=== PATIENT | female | born 1945 | race Caucasian/White ===

== ENCOUNTER 2023-09-14 08:15 | Outpatient (RCR) | payer MEDICARE, BC, SELFPAY | END 2024-01-12 23:59 | disposition home or self-care (01) | PROVIDERS: PCP Family Medicine; Visit Provider Family Medicine | DX: M47.816 Spondylosis without myelopathy or radiculopathy, lumbar region (principal); M51.36 Other intervertebral disc degeneration, lumbar region; Z51.89 Encounter for other specified aftercare | CPT/HCPCS: 97110; 97140; 97162 ==

== ENCOUNTER 2024-09-06 19:52 | Outpatient (CLI) | payer MEDICARE, BC, SELFPAY | END 2024-09-06 19:53 | disposition home or self-care (01) | LOC: AMB 09-10 16:14 | PROVIDERS: PCP Family Medicine; Visit Provider Emergency Medicine Emergency Medical Services | DX: R53.1 Weakness (principal) | CPT/HCPCS: A0425; A0427 ==

== ENCOUNTER 2024-09-06 20:37 | Inpatient (IN) | payer MEDICARE, BC, SELFPAY ==
[2024-09-06] VITALS (9 sets, daily range): BP systolic 100–110; BP diastolic 37–81; PULSE 99–120; RESP 18–28; TEMP 36.6; O2SAT 95–99
--- OUTSIDE RECORDS SUMMARY | 2024-09-06 20:38 | XMS_ITS | Clinical Summary ---
Author Organization [employer] [facility] Address [address] [place] [address] Care Team Providers Care Employment Interviewer Name Role Phone Kely Salas MD Primary Care Provider [phone] Allergies No known active allergies Medications Cholecalciferol, Vitamin D3, (VITAMIN D-3) 2,000 unit tabletIndications:V itamin D deficiency Take 1 tablet by mouth once daily. 0 4 Active apixaban (Eliquis) 5 mg tabletIndications:A trial fibrillation, unspecified type (HC) Take 1 Tablet (5 mg) by mouth two times daily. 180 Tablet 3 4 Active atenoloL (TENORMIN) 100 mg tabletIndications:C hronic a-fib (HC) Take 1 Tablet (100 mg) by mouth once daily. 90 Tablet 3 4 Active furosemide (LASIX) 40 mg tabletIndications:A trial fibrillation, unspecified type (HC) Take 1 Tablet (40 mg) by mouth two times daily. 180 Tablet 3 4 Active potassium chloride (Klor-Con M20) 20 mEq extended-release tablet (part/cryst)Indicat ions:Hypokalemia Take 1 Tablet (20 mEq) by mouth once daily with a meal. 90 Tablet 3 4 Active rosuvastatin (CRESTOR) 20 mg tabletIndications:H yperlipidemia, unspecified hyperlipidemia type Take 1 Tablet (20 mg) by mouth at bedtime. 90 Tablet 3 4 Active omeprazole (PRILOSEC) 20 mg Delayed-Release capsuleIndications: Gastric reflux Take 1 Capsule (20 mg) by mouth once daily before a meal. 90 Capsule 3 4 Active halobetasol 0.05 % creamIndications:Alyx tong sclerosus Apply thin layer 2-3 times per week. 50 g 4 Active Active Problems Problem Noted Date Diagnosed Date Hyperlipidemia 09/24/2022 Positive cardiac stress test 09/24/2022 Hyperparathyroidism 03/05/2022 Overview (03/05/2022): Hypercalcemia: secondary to mild hyperparathyroidism. Evaluation: Clinically: distant history of renal stones (1969) Family: no known Calcium history. (03-12-21): Calcium 10.6 (09-11-21): Calcium 10.6, PTH 97, D 68.5 (12-21-21): Uca 242 Bone mineral density (04-29-16): normal bone mineral density, (12-23-21): normal bone mineral density including hip, spine, radius. Options discussed: monitoring vs surgery. Operative intervention can typically be delayed in patients over 50 years of age who are asymptomatic or minimally symptomatic and who have serum calcium concentrations <1.0 mg/dL (0.2 mmol/L) above the upper limit of normal. Plan: annual Calcium monitoring via primary care physician, with the above considerations noted. A) annual Calcium monitoring: as above. B) no further bone mineral density monitoring is recommended. Prediabetes 03/12/2021 Atrial fibrillation 08/07/2020 Morbid obesity with BMI of 45.0-49.9, adult 04/17 HTN (hypertension) 03/20/2014 Gastric reflux 03/20/2014 Vitamin D deficiency 03/20/2014 Encounters Date Type Department Care Team Description 07/05/2024 10:15 AM SET MAKING MACHINE OPERATOR Ancillary Procedure [facility] [address] [facility] [address] 07/05/2024 Travel 06/21/2024 Telephone [facility] [address] [place] [address] Kely Salas MD Referral 06/20/2024 Telephone [facility] [address] [place] [address] Kely Salas MD REQUESTING CALL BACK 06/08/2024 9:40 AM SET MAKING MACHINE OPERATOR Ancillary Procedure [facility] [address] [facility] [address] 06/08/2024 8:45 AM SET MAKING MACHINE OPERATOR Office Visit [facility] [address] [place] [address] Kely Salas MD Medicare ANNUAL (subsequent) Visit (78 year old female); Hand Pain/problem (Possible tremor L hand - med side effect? Sister has Parkinsons) 06/08/2024 Travel from Last 3 Months Immunizations Name Administration Dates Next Due COVID-19 VACCINE SPIKEVAX (M ODERNA 50MCG/0.5ML) 12YO+ PFS 06/07/2023 COVID-19 vaccine (Moderna 100mcg/0.5mL) PF, MDV 11/06/2020,10/09/2020 COVID-19 vaccine (Pfizer-Bio NTech 30mcg/0.3mL) 12YO+ PAULETTE-SUCROSE PF, MDV 09/11/2021 Influenza A (H1N1), Inactivated 05/28/2009 Influenza, High-dose Inactivated 03/26/2015 Influenza, Inactivated AIIV4 (Age 65+ Years) Preserv Free 06/07/2023 Influenza, Inactivated IIV3 (Age 65+ Years) Preserv Free 06/14/2017 Pneumococcal Poly,23-Valent (Pneumovax) 03/26/20 15 Pneumococcal conj 13-Valent (Prevnar 13) 017 Td (Age >=7 Years) 09/01/2005 Td, Preservative Free (age >= 7 Years) 6 Zoster (Zostavax-ZVL, live) 01/07/2015 Family History Medical History Relation Name Comments Diabetes Brother 1 Diabetes Brother 2 Cancer-colon Father Diabetes Maternal Grandmother Diabetes Mother Hypertension Mother Diabetes Paternal Grandmother Diabetes Sister two sisters Cancer-breast No Family History Relation Name Status Comments Brother 1 Brother 2 Father colon cancer Maternal Grandmother Mother Paternal Grandmother Sister Social History Tobacco Use Types Packs/Day Years Used Date Smoking Tobacco: Never Smokeless Tobacco: Never Tobacco Cessation:Counseling Given: Yes Alcohol Use Standard Drinks/Week Comments Not Currently 0 (1 standard drink = 0.6 oz pur e alcohol) very rare PHQ-2 Answer Date Recorded PHQ-2 TOTAL SCORE 1 06/08/2024 Social Connections Answer Date Recorded Do you often feel lonely or isolated from those around you? 0 06/08/2024 Financial Resource Strain Answer Date R ecorded Difficulty of Paying Living Expenses 3 06/08/2024 Difficulty of Paying Living Expenses Not on file 06/08/2024 Food Insecurity Answer Date Recorded Do you worry your food will run out before you are able to buy more? 1 06/08/2024 Transportation Needs Answer Date Record ed Does lack of transportation keep you from medica l appointments? 1 06/08/2024 Does lack of transportation keep you from work, meetings or getting things that you need? 1 06/08/2024 Housing Stability Answer Date Recorded What is your housing situation today? 1 06/08/2024 Utilities Answer Date Recorded Do you have trouble paying f or utilities (for example, heat, electricity, water, phone)? 1 06/08/2024 Comments No Sex and Gender Information Value Date Recorded Sex Assigned at Not on file Legal Sex Female 5:23 AM SET MAKING MACHINE OPERATOR Gender Identity Not on file Sexual Orientation Not on file Occupation Industry Job Start Date Job End Date Not on file Not on file Not on file Not on file Obstetrics History Para Term AB IAB SAB Ectopic Multiple Livin g Live Births 1 1 Date Outcome GA Total Labor Labor/2nd/3rd Weight Sex Type Anes PTL Amaya A1 A5 Name Clin Last Filed Vital Signs Vital Sign Reading Time Taken Comments Blood Pressure 134/83 06/08/2024 8:34 AM SET MAKING MACHINE OPERATOR Pulse 77 06/08/2024 8:34 AM SET MAKING MACHINE OPERATOR Temperature 36.6 C (97.9 F) 08/11/2023 11:34 AM SET MAKING MACHINE OPERATOR Respiratory Rate 16 12/16/2021 3:58 PM CDT Oxygen Saturation 99% 06/08/2024 8:34 AM SET MAKING MACHINE OPERATOR Inhaled Oxygen Concentration - - Weight 108.9 kg (240 lb) 06/08/2024 8:34 AM SET MAKING MACHINE OPERATOR Height 151.6 cm (4' 11.69) 06/08/2024 8:[address] Body Mass Index 47.37 06/08/2024 8:34 AM SET MAKING MACHINE OPERATOR Plan of Treatment Health Maintenance Due Date Last Done Comments Tdap 10/13/1956 Hepatitis C screening for ag e 18-79 1963 Zoster (shingles) series for age 50+ (2 of 3) 03/04/2015 01/07/2015 Tetanus booster 09/02/2015 09/02/2005, 09/01/2005 RSV vaccine for adults or (1 - 1-dose 75+ series) 10/13/2019 COVID-19 vaccine series ( - season) 2024 06/07/2023, 09/11/2021, 11/06/2020, Additional history exists Influenza for age 65+ 03/18/2024 06/07/2023 , 06/14/2017, 03/26/2015, Additional history exists BMI (ht and wt on same day) for age 18+ 06/08/2025 06/08/2024, 06/07/2023, 05/13/2022, Additional history exists Depression screening for age 12+ 06/08/2025 06/08/2024, 06/07/2023, 06/07/2023, Additional history exists Medicare Wellness for age 65+ 06/09/2025, 06/07/2023, 05/13/2022, Additional history exists Pneumococcal series for age 50+ Completed 7, 03/26/2015 DEXA/DXA scan for age 65+ Completed 12/21/2021, Procedures Procedure Name Priority Date/Time Associated Diagnosis Comments MR SPINE LUMBAR WO Routine 07/05/2024 10 :15 AM SET MAKING MACHINE OPERATOR Chronic left-sided low back pain without sciatica XR MAMMO BILAT SCREENING Routine 06/08/2024 9:40 AM SET MAKING MACHINE OPERATOR Visit for screening mammogram TSH WITH REFLEX Routine 06/08/2024 9:23 AM SET MAKING MACHINE OPERATOR Tremor of left hand COMP METABOLIC PANEL Routine 06/08/2024 9:23 AM SET MAKING MACHINE OPERATOR Hyperparathyroidism (HC) Hypokalemia Prediabetes LIPID PANEL W REFLEX MEASURED LDL Routine 06/08/2024 9:23 AM SET MAKING MACHINE OPERATOR Hyperlipidemia, unspecified hyperlipidemia type HEMOGLOBIN A1C Routine 06/08/2024 9:23 AM SET MAKING MACHINE OPERATOR Prediabetes PTH,INTACT Routine 06/08/2024 9:23 AM SET MAKING MACHINE OPERATOR Hyperparathyroidism (HC) XR DXA BONE DENSITY 2 SITES AXIAL AND 1 SITE PERIPHERAL Routine 12/21/2021 8:48 AM CDT Hyperparathyroidism (HC) from Last 3 Months or Most Recently Relevant to Health Maintenance Results * MR SPINE LUMBAR WO (07/05/2024 10:15 AM SET MAKING MACHINE OPERATOR) Anatomical Region Laterality Modality Spine, LUMBAR SPINE Magnetic Res onance 07/05/2024 2:47 PM SET MAKING MACHINE OPERATOR Impressions 07/05/2024 2:47 PM SET MAKING MACHINE OPERATOR 1. Multilevel disc height loss with associated Modic type 1 and 2 degenerative endplate signal at T12-L1 and L1-L2. 2. Grade 1 anterolisthesis at L4-L5 and minimal stepwise degenerative retrolisthesis from L1-L3. 3. At L1-L2, mild spinal canal stenosis. 4. At L2-L3, mild spinal canal stenosis and moderate bilateral neural foraminal narrowing. 5. At L3-L4, moderate right neural foraminal narrowing. Dictated by Nitin Goldberg MD @ 07/05/2024 2:47:00 PM (Electronically Signed) Narrative 07/05/2024 2:47 PM SET MAKING MACHINE OPERATOR For Patients: As a result of the Cures Act, medical imaging exams and procedure reports are released immediately into your electronic medical record. You may view this report before your referring provider. If you have questions, please contact your health care provider. INDICATION: Chronic low back, left-sided. TECHNIQUE: Multisequence multiplanar MRI of the lumbar spine without the use of intravenous contrast. COMPARISON: None available. FINDINGS: Grade 1 3 mm anterolisthesis at L4-L5 and minimal stepwise degenerative retrolisthesis from L1-L3. Vertebral body heights are maintained. No T1 hypointense infiltrative lesion is identified. There is advanced multilevel disc desiccation and height loss with Modic type 1 and 2 degenerative endplate signal at T12-L1 and L1-L2. The conus medullaris terminates normally at the L1 level. The paraspinal soft tissues are unremarkable. T12-L1: Symmetric disc bulge. Mild facet joint arthrosis. No significant spinal canal or neural foraminal stenosis. L1-L2: Symmetric disc bulge. Moderate facet joint arthrosis. Mild spinal canal stenosis and bilateral neural foraminal narrowing. L2-L3: Symmetric disc bulge. Moderate facet joint arthrosis. Mild spinal canal stenosis and moderate bilateral neural foraminal narrowing. L3-L4: Advanced facet joint arthrosis. No significant spinal canal stenosis. Moderate right and mild left neural foraminal narrowing. L4-L5: Advanced facet joint hypertrophy with anterolisthesis and disc uncovering. No significant spinal canal stenosis. Mild right and no significant left neural foraminal narrowing. L5-S1: Advanced facet joint hypertrophy. Shallow symmetric disc bulge. No significant spinal canal or neural foraminal stenosis. Procedure Note Cedric Goldberg MD - 07/05/2024 For Patients: As a result of the Cures Act, medical imagingexams and procedure reports are released immediately into your electronicmedical record. You may view this report before your referring provider.If you have questions, please contact your health care provider. INDICATION: Chronic low back, left-sided. TECHNIQUE: Multisequence multiplanar MRI of the lumbar spine without the use ofintravenous contrast. COMPARISON: None available. FINDINGS: Grade 1 3 mm anterolisthesis at L4-L5 and minimal stepwise degenerativeretrolisthesis from L1-L3. Vertebral body heights are maintained. No [id number] infiltrative lesion is identified. There is advancedmultilevel disc desiccation and height loss with Modic type 1 and 2degenerative endplate signal at T12-L1 and L1-L2. The conus medullaristerminates normally at the L1 level. The paraspinal soft tissues areunremarkable. T12-L1: Symmetric disc bulge. Mild facet joint arthrosis. No significantspinal canal or neural foraminal stenosis. L1-L2: Symmetric disc bulge. Moderate facet joint arthrosis. Mild spinalcanal stenosis and bilateral neural foraminal narrowing. L2-L3: Symmetric disc bulge. Moderate facet joint arthrosis. Mild spinalcanal stenosis and moderate bilateral neural foraminal narrowing. L3-L4: Advanced facet joint arthrosis. No significant spinal canalstenosis. Moderate right and mild left neural foraminal narrowing. L4-L5: Advanced facet joint hypertrophy with anterolisthesis and discuncovering. No significant spinal canal stenosis. Mild right and nosignificant left neural foraminal narrowing. L5-S1: Advanced facet joint hypertrophy. Shallow symmetric disc bulge. Nosignificant spinal canal or neural foraminal stenosis. IMPRESSION: 1. Multilevel disc height loss with associated Modic type 1 and 2degenerative endplate signal at T12-L1 and L1-L2. 2. Grade 1 anterolisthesis at L4-L5 and minimal stepwise degenerativeretrolisthesis from L1-L3. 3. At L1-L2, mild spinal canal stenosis. 4. At L2-L3, mild spinal canal stenosis and moderate bilateral neuralforaminal narrowing. 5. At L3-L4, moderate right neural foraminal narrowing. Dictated by Nitin Goldberg MD @ 07/05/2024 2:47:00 PM (Electronically Signed) us Kely Salas MD MR Final Resul t * XR MAMMO BILAT SCREENING (06/08/2024 9:40 AM SET MAKING MACHINE OPERATOR) Anatomical Region Laterality Modality BREASTS, Breast Left, Breast Right Bilateral Mammography Impressions 06/08/2024 3:26 PM SET MAKING MACHINE OPERATOR There is no radiographic evidence for malignancy. Recommend annual mammograms. MAMMOGRAM ASSESSMENT: ACR 1 Negative PATIENTS: You will also receive a letter with your examination results in an easy to read format. If you have questions about your results, please contact your referring provider. Narrative 06/08/2024 3:26 PM SET MAKING MACHINE OPERATOR For Patients: As a result of the 21st Century Cures Act, medical imaging exams and procedure reports are released immediately into your electronic medical record. You may view this report before your referring provider. If you have questions, please contact your health care provider. XR MAMMO BILAT SCREENING [[id number]] CLINICAL HISTORY: This is an asymptomatic 78 y.o. patient. INDICATION FOR EXAM: Mammogram Screening. TECHNIQUE: CC & MLO views were obtained. This study was evaluated with the assistance of Computer-Aided Detection. COMPARISON FILM: Yes 09/11/21 [facility] 07/31/20 [facility] FINDINGS: The breasts are almost entirely fatty. There are no dominant masses, suspicious micro calcifications or areas of architectural distortion. Kely Salas MD MAMMO Final Resul t * (ABNORMAL) HEMOGLOBIN A1C (06/08/2024 9:23 AM SET MAKING MACHINE OPERATOR) HEMOGLOBIN A1C 6.8(H) <5.7 % of total Hgb [facility] Comment: For someone without known diabetes, a hemoglobin A1c value of 6.5% or greater indicates that they may have diabetes and this should be confirmed with a follow-up test. For someone with known diabetes, a value <7% indicates that their diabetes is well controlled and a value greater than or equal to 7% indicates suboptimal control. A1c targets should be individualized based on duration of diabetes, age, comorbid conditions, and other considerations. Currently, no consensus exists regarding use of hemoglobin A1c for diagnosis of diabetes for children. Blood BLOOD SPECIMEN / Unknown 06/08/2024 9:23 AM SET MAKING MACHINE OPERATOR 06/08/2024 9:23 AM SET MAKING MACHINE OPERATOR Kely Salas MD CHEMISTRY Final Resul t [facility] [address] [place] [address], [place] [phone] [facility] [address] [facility] [place] [address] * TSH WITH REFLEX (06/08/2024 9:23 AM SET MAKING MACHINE OPERATOR) TSH W/REFLEX TO FT4 2.53 0.40 - 4.50 mIU/L [facility] Blood BLOOD SPECIMEN / Unknown 06/08/2024 9:23 AM SET MAKING MACHINE OPERATOR 06/08/2024 9:23 AM SET MAKING MACHINE OPERATOR Kely Salas MD CHEMISTRY Final Resul t [facility] [address] [place] [address], [place] [phone] [facility] [address] [place] [address] * (ABNORMAL) LIPID PANEL W REFLEX MEASURED LDL (06/08/2024 9:23 AM SET MAKING MACHINE OPERATOR) CHOLESTEROL, TOTAL 117 <200 mg/dL [facility] HDL CHOLESTEROL 47(L) > OR = 50 mg/dL [facility] TRIGLYCERIDES 92 <150 mg/dL [facility] LDL-CHOLESTEROL 52 mg/dL (calc) [facility] Comment: Reference range: <100 Desirable range <100 mg/dL for primary prevention; <70 mg/dL for patients with CHD or diabetic patients with > or = 2 CHD risk factors. LDL-C is now calculated using the Amado calculation, which is a validated novel method providing better accuracy than the Friedewald equation in the estimation of LDL-C. Janusz ADAMS et al. MELONY. 2013;310(19): 2970-5788 (http://education.[employer]/faq/QCP204) CHOL/HDLC RATIO 2.5 <5.0 (calc) [facility] NON HDL CHOLESTEROL 70 <130 mg/dL (calc) [facility] Comment: For patients with diabetes plus 1 major ASCVD risk factor, treating to a non-HDL-C goal of <100 mg/dL (LDL-C of <70 mg/dL) is considered a therapeutic option. Blood BLOOD SPECIMEN / Unknown 06/08/2024 9:23 AM SET MAKING MACHINE OPERATOR 06/08/2024 9:23 AM SET MAKING MACHINE OPERATOR us Kely Salas MD CHEMISTRY Final Resul t [facility] [address] [place] [address], [facility] [address] [place] [address] * (ABNORMAL) PTH,INTACT (06/08/2024 9:23 AM SET MAKING MACHINE OPERATOR) PARATHYROID HORMONE, INTACT 83(H) 16 - 77 pg/mL [facility] Comment: Interpretive Guide Intact PTH Calcium ------- Normal Parathyroid Normal Normal Hypoparathyroidism Low or Low Normal Low Hyperparathyroidism Primary Normal or High High Secondary High Normal or Low Tertiary High High Non-Parathyroid Hypercalcemia Low or Low Normal High CALCIUM 10.4 8.6 - 10.4 mg/dL [facility] Blood BLOOD SPECIMEN / Unknown 06/08/2024 9:23 AM SET MAKING MACHINE OPERATOR 06/08/2024 9:23 AM SET MAKING MACHINE OPERATOR us Kely Salas MD SEND OUTS Final Resul t [facility] [address] [place] [address], [facility] [address] [place] [address] * (ABNORMAL) COMP METABOLIC PANEL (06/08/2024 9:23 AM SET MAKING MACHINE OPERATOR) GLUCOSE 100(H) 65 - 99 mg/dL [facility] Comment: Fasting reference interval For someone without known diabetes, a glucose value between 100 and 125 mg/dL is consistent with prediabetes and should be confirmed with a follow-up test. UREA NITROGEN (BUN) 18 7 - 25 mg/dL [facility] CREATININE 1.03(H) 0.60 - 1.00 mg/dL [facility] EGFR 55(L) > OR = 60 mL/min/1.7 3m2 [facility] BUN/CREATININE RATIO 17 6 - 22 (calc) [facility] SODIUM 143 135 - 146 mmol/L [facility] POTASSIUM 3.7 3.5 - 5.3 mmol/L [facility] CHLORIDE 98 98 - 110 mmol/L [facility] CARBON DIOXIDE 27 20 - 32 mmol/L [facility] CALCIUM 10.4 8.6 - 10.4 mg/dL [facility] PROTEIN, TOTAL 7.7 6.1 - 8.1 g/dL [facility] ALBUMIN 4.5 3.6 - 5.1 g/dL [facility] GLOBULIN 3.2 1.9 - 3.7 g/dL (calc) [facility] ALBUMIN/GLOBULIN RATIO 1.4 1.0 - 2.5 (calc) [facility] BILIRUBIN, TOTAL 1.0 0.2 - 1.2 mg/dL [facility] ALKALINE PHOSPHATASE 127 37 - 153 U/L [facility] AST 19 10 - 35 U/L [facility] ALT 13 6 - 29 U/L [facility] Blood BLOOD SPECIMEN / Unknown 06/08/2024 9:23 AM SET MAKING MACHINE OPERATOR 06/08/2024 9:23 AM SET MAKING MACHINE OPERATOR us eKly Salas MD CHEMISTRY Final Resul t [facility] [place] [facility] [place] [id number] [place] [address], [facility] [address] * XR DXA BONE DENSITY 2 SITES AXIAL AND 1 SITE PERIPHERAL (12/21/2021 8:48 AM CDT) Anatomical Region Laterality Modality LUMBAR SPINE Other Impressions 12/23/2021 7:46 AM CDT Normal bone density. RECOMMENDATIONS: The National Osteoporosis Foundation recommends pharmacologic treatment for patients with T-scores of -2.5 or less, patients with prior history of fragility fractures, or patients with 10-year probability of greater than 3% at hips or greater than 20% of suffering major osteoporotic fractures. Recommend continued optimization of calcium and vitamin D intake through dietary means and/or supplementation and regular exercise. Repeat scan recommended in 3-5 years. Akila Buitrago PA-C [facility] 12/23/2021 Narrative 12/23/2021 7:46 AM CDT For Patients: Results are automatically released to your [facility] account once available, in compliance with federal regulations. This means that you may see your results before your provider has had a chance to review them. Please allow 2-3 business days for your provider to comment on the results. XR DXA Bone Mineral Density (BMD) EXAM LOCATION: [address] [address] PATIENT NAME: Nadia Howard DATE OF : 1945 EXAM DATE: 12/21/2021 REQUESTING PROVIDER: Sami Winchester MD GENDER AT : female HEIGHT: 5' 1.34 (07/31/2020) WEIGHT: 238 lb (12/16/2021) MENOPAUSAL STATUS: Postmenopausal RACE/ETHNICITY: White RISK FACTORS: Hyperparathyroidism and White Race CURRENT MEDICATION FOR BONE LOSS: NONE INDICATION: Follow-up of normal DXA COMPARISON DATE(S): 2016 DXA scans are compared to prior studies for a patient only when the two (or more) studies were performed on the same scanner. It is not possible to compare data generated on one scanner to data from another because there are not standards in DXA equipment. This applies even if the two scanners are made by the same environmental property assessor. PROCEDURE: Dual-energy x-ray absorptiometry performed with routine technique. Reporting is completed in the form of a T-score. The T-score represents the standard deviation from peak bone mass based on young healthy adult. A Z-score is used for diagnosis in premenopausal women, and for men under the age of 50. FINDINGS: RESULT LUMBAR SPINE L1 - L3 BMD: 1.577 g/cm2 T-Score: + 3.2 Z-Score: + 3.8 Change from prior in 2016: Increase 2.3%. RESULTS FEMUR Left femoral neck BMD: 0.898 g/cm2 T-Score: - 1.0 Z-Score: + 0.3 Change from prior in 2016: Decrease 8.0%. Right femoral neck BMD: 1.040 g/cm2 T-Score: + 0.0 Z-Score: + 1.3 Change from prior in 2016: Decrease 1.2%. Left hip BMD: 1.019 g/cm2 T-Score: + 0.1 Z-Score: + 1.1 Change from prior in 2016: Decrease 7.9%. Right hip BMD: 1.087 g/cm2 T-Score: + 0.6 Z-Score: + 1.6 Change from prior in 2016: Decrease 7.8%. RESULT FOREARM Left Forearm distal radius BMD: 0.977 g/cm2 T-Score: + 1.2 Z-Score: + 3.6 Change from prior: None WHO criteria: Normal: T-score at or above -1 SD Osteopenia: T-score between -1.1 and -2.4 SD Osteoporosis: T-score at or below -2.5 SD us Sami Winchester MD DEXA Final Resu lt from Last 3 Months or Most Recently Relevant to Health Maintenance Insurance MEDICARE PART B HB ONLY MEDICARE PART A HB ONLY [facility] [place] [facility] PB ONLY Care Teams Employment Interviewer Relationship Specialty Start Date End Date Kely Salas MD [address] [place] [address] PCP - General Family Practice 12/14/19
--- NOTE | 2024-09-06 21:00 | ED.WEAKNESS ---
HPI - Weakness General Chief complaint: Weakness Stated complaint: Weakness Time Seen by Provider: 09/06/24 20:37 History of Present Illness HPI Narrative: This 78-year-old woman comes in by ambulance. She lives alone at home and was found down by family members. She states that she was leaning forward and lost her balance and went to the floor but did not injure herself. This occurred 3 days ago and she was not able to get up due to deconditioning. She has chronic aches and pains but does not describe any new injury. She is on Eliquis for chronic atrial fibrillation and arrives here with rapid ventricular response. Her mouth is dry as she has not been able to take food or drink over this time. She does not report a headache and does not have any neurologic deficits. Related Data Home Medications ?Medication ?Instructions ?Recorded ?Confirmed atenolol 100 mg tablet 100 mg PO 06/23/22 07/20/23 furosemide 40 mg tablet 40 mg PO 06/23/22 07/20/23 halobetasol propionate 0.05 % g topical 06/23/22 07/20/23 topical cream omeprazole 20 mg capsule,delayed 20 mg PO 06/23/22 07/20/23 release potassium chloride 20 mEq tab PO 06/23/22 07/20/23 tablet,extended release(part/cryst) (Klor-Con M) acetylcysteine 600 mg capsule 600 mg PO QDAY 07/20/23 07/20/23 apixaban 5 mg tablet (Eliquis) 5 mg PO BID 07/20/23 07/20/23 cholecalciferol (vitamin D3) 50 100 mcg PO QDAY 07/20/23 07/20/23 mcg (2,000 unit) capsule (Vitamin D3) rosuvastatin 20 mg tablet 20 mg PO QPM 07/20/23 07/20/23 Previous Rx's ?Medication ?Instructions ?Recorded famotidine 20 mg tablet (Pepcid) 20 mg PO .evening meal #90 tabs 06/23/22 Allergies Allergy/AdvReac Type Severity Reaction Status Date / Time No Known Drug Allergies Allergy Unverified 07/20/23 09:51 Review of Systems Status of ROS: Reports: 10 or more systems reviewed and unremarkable except as noted in History and below Narrative: Constitutional: No fevers, no weight gain or loss. Eyes: No discharge. No vision changes. HENT: No congestion, no sore throat, no ear pain. Cardiovascular: No chest pain, no palpitations. Respiratory: No shortness of breath, no wheezes, no cough. Gastrointestinal: No abdominal pain, no vomiting, no diarrhea. Genitourinary: No dysuria, no hematuria. Musculoskeletal: Normal range of motion. Skin: No rashes, no pruritis. Neurological: No dizziness, sensory change, speech change. Generalized weakness due to deconditioning. Endo/Heme/Allergies: No bruising or bleeding. No polydipsia. Pysch: no suicidality, no anxiety, no insomnia. All other systems reviewed and are negative. [facility] Medical History (Updated 09/06/24 @ 22:07 by Den Shah MD) Left lumbar pain ?M54.50 - Low back pain, unspecified (ICD-10) Vitamin D deficiency ?E55.9 - Vitamin D deficiency, unspecified (ICD-10) HTN (hypertension) ?I10 - Essential (primary) hypertension (ICD-10) Morbid obesity ?E66.01 - Morbid (severe) obesity due to excess calories (ICD-10) Pre-diabetes ?R73.03 - Prediabetes (ICD-10) Hyperlipidemia ?E78.5 - Hyperlipidemia, unspecified (ICD-10) Hyperparathyroidism ?E21.3 - Hyperparathyroidism, unspecified (ICD-10) GERD (gastroesophageal reflux disease) ?K21.9 - Gastro-esophageal reflux disease without esophagitis (ICD-10) Atrial fibrillation ?I48.91 - Unspecified atrial fibrillation (ICD-10) Polio ?A80.9 - Acute poliomyelitis, unspecified (ICD-10) Surgical History History of carpal tunnel surgery of right wrist ?Z98.890 - Other specified postprocedural states (ICD-10) Hx of LASIK ?Z98.890 - Other specified postprocedural states (ICD-10) History of cataract surgery ?Z98.49 - Cataract extraction status, unspecified eye (ICD-10) H/O: hysterectomy ?Z90.710 - Acquired absence of both cervix and uterus (ICD-10) Social History (Updated 07/20/23 @ 09:54 by Arcelia Lindsey GLAUCOMA SPECIALIST, GLAUCOMA SPECIALIST) Smoking Status: Never smoker Do you use any of these nicotine containing products: None Second hand tobacco smoke exposure: No Non-prescribed substance use: denies use Exam Narrative: Exam Narrative: Constitutional: Well-developed, well-nourished, no acute distress. HEENT: Normocephalic . She has an old bruise under her chin that occurred before this current fall. Neck: Normal range of motion. Nontender. Supple. Heart: Irregular. Tachycardia. Intact distal pulses. Lungs: Clear to auscultation. No chest discomfort. No wheezes, rhonchi, or rales. Abdomen: Normal bowel sounds. Nontender. No rebound tenderness. Genitalia: Deferred. Back: No midline tenderness. Normal range of motion. Extremities: Normal range of motion. No injury. She has old bruising on her left shoulder that occurred prior to this current fall. Skin: Intact. No rash. Warm. No erythema or pallor. Neurologic: No altered sensation. No weakness. Alert and oriented. Psychiatric: No suicidality. No anxiety or depression. No insomnia. Nursing notes and vitals signs are reviewed. Const: Vital Signs, click to edit/add: Vital Signs - 24 hr 09/06/24 20:44 09/06/24 21:07 09/06/24 21:15 Temperature 97.8 F Pulse Rate 106 H Pulse Rate [Pulse Oximeter] 120 H Respiratory Rate 18 20 Blood Pressure 103/56 L Blood Pressure [Ri ght Upper Arm] 110/67 Pulse Oximetry 95 95 98 Oxygen Delivery Me thod Room Air 09/06/24 21:24 09/06/24 21:44 Temperature Pulse Rate 99 101 H Pulse Rate [Pulse Oximeter] Respiratory Rate 24 28 H Blood Pressure 104/37 L 100/44 L Blood Pressure [Ri ght Upper Arm] Pulse Oximetry 98 99 Oxygen Delivery Me thod Course Vital Signs Vital signs: Initial Vital Signs Temperature 97.8 F 09/06/24 20:44 Temperature Source Temporal Artery Scan 09/06/24 20:44 Pulse Rate 120 H 09/06/24 20:44 Respiratory Rate 18 09/06/24 20:44 Blood Pressure 110/67 09/06/24 20:44 Blood Pressure Mean 81 09/06/24 20:44 Blood Pressure Position Sitting 09/06/24 20:44 Pulse Oximetry 95 09/06/24 20:44 Oxygen Delivery Method Room Air 09/06/24 20:44 Vital Signs Temperature 97.8 F 09/06/24 20:44 Pulse Rate 120 H 09/06/24 20:44 Respiratory Rate 18 09/06/24 20:44 Blood Pressure 110/67 09/06/24 20:44 Pulse Oximetry 95 09/06/24 20:44 Oxygen Delivery Method Room Air 09/06/24 20:44 Temperature 97.8 F 09/06/24 20:44 Pulse Rate 101 H 09/06/24 21:44 Respiratory Rate 28 H 09/06/24 21:44 Blood Pressure 100/44 L 09/06/24 21:44 Pulse Oximetry 99 09/06/24 21:44 Oxygen Delivery Method Room Air 09/06/24 20:44 Medications Administered Medications: Generic Name Dose Route Start Last Admin Trade Name Freq PRN Reason Stop Dose Admin Sodium Chloride 1,000 mls @ 1,000 mls/hr 09/06/24 22:00 09/06/24 22:02 0.9 % Sodium Chloride 1000 Ml IV 09/06/24 22:59 1,000 mls/hr .Q1H FRANCO Administration Discontinued Medications Generic Name Dose Route Start Last Admin Trade Name Freq PRN Reason Stop Dose Admin Sodium Chloride 1,000 mls @ 1,000 mls/hr 09/06/24 21:00 09/06/24 21:47 0.9 % Sodium Chloride 1000 Ml IV 09/06/24 21:59 Infused .Q1H FRANCO Infusion MDM - Weakness MDM Narrative Medical decision making narrative: this patient comes in after being down for a few days. Her daughter comes and states that her last phone conversation was actually 2 days ago. The patient does not report any injury but has not had anything to eat or drink and she states that she has been trying to hold her urine. She arrives in atrial fibrillation which is chronic but her rate is increased to around 120 beats per minute. She has a dry mouth. An IV was established where she received a total of 2 L of normal saline. Lab results returned with significant elevation of her creatine can ease at around 13,000. other labs are okay in general. Her BUN is elevated as would be expected with volume depletion. Her troponin returns at 0.14. She does not report any chest pain. These labs will likely improve with hydration. I did speak with the hospitalist on-call, Dr. Astudillo, who will arrange for her admission. Incidentally the patient's nasal swab returned positive for COVID. Lab Data Labs: Lab Results 09/06/24 09/06/24 Range/Units 20:54 21:00 WBC 14.22 H (4.50-11.00) K/uL RBC 5.13 (4.00-5.20) m/uL Hgb 15.5 (12.0-16.0) gm/dL Hct 47.3 (33.0-51.0) % MCV 92 (80-100) fL MCH 30 (26-34) pg MCHC 33 (32-36) gm/dL RDW Coeff of Aron 13.8 (11.5-15.5) % Plt Count 199 (140-440) K/uL Neut % (Auto) 84.7 H (42.0-72.0) % Lymph % (Auto) 7.4 L (20-44) % [place] % (Auto) 6.9 (0.0-11.0) % Eos % (Auto) 0.1 (0.0-7.0) % Baso % (Auto) 0.1 (0.0-3.0) % Neut # (Auto) 12.00 H (1.7-7.0) K/uL Lymph # (Auto) 1.10 (0.90-2.90) K/uL [place] # (Auto) 1.00 H (0.00-0.90) K/UL Eos # (Auto) 0.00 (0.00-0.50) K/uL Baso # (Auto) 0.00 (0.00-0.30) K/uL Abs Immat Gran (auto) 0.10 (0.00-0.30) K/uL Imm/Tot Granulo (auto) 0.8 % Sodium 141 (135-149) mmol/L Potassium 3.8 (3.6-5.1) mmol/L Chloride 99 (96-114) mmol/L Carbon Dioxide 27 (20-32) mmol/L Anion Gap 15 (7-15) mEq/L BUN 46 H (7-30) mg/dL Creatinine 1.1 (0.5-1.5) mg/dL Estimated GFR 51 ml/min Glucose 128 H (60-115) mg/dL Calcium 9.7 (8.4-10.6) mg/dL Total Creatine Kinase 72782 H (41-117) U/L Troponin I 0.14 H* (0.01-0.04) ng/mL Urine Color Yellow (Yellow) Urine Appearance Slightly Cloudy A (Clear) Urine pH 5.5 (5.0-8.5) Ur Specific [place] >= 1.030 (1.000-1.030) Urine Protein 3+ A (Negative) Urine Glucose (UA) Negative (Negative) Urine Ketones Negative (Negative) Urine Blood 3+ A (Negative) Urine Nitrite Negative (Negative) Urine Bilirubin 1+ A (Negative) Urine Urobilinogen 0.2 (0.2-1.0) Ur Leukocyte Esterase Negative (Negative) Urine RBC 10-25 A (0-2) Urine WBC 2-5 (0-5) Ur Squamous Epith Cells Few (None-Few) Urine Bacteria Few A (None) Hyaline Casts Few (None-Few) Coarse Granular Casts Few A (None) RBC Casts Few A (None) SARS-CoV-2 (PCR) POSITIVE SARS-CoV-2 A (Negative) Influenza Type A (PCR) Negative PCR FLU A (Negative) Influenza Type B (PCR) Negative PCR FLU B (Negative) RSV (PCR) Negative PCR RSV (Negative) ECG Data Attestation: I personally reviewed and interpreted this ECG as follows: Interpretation: Atrial fibrillation with rapid ventricular response. Rate is 119 beats per minute. There are no specific ST or T-wave abnormalities. Discharge Plan Discharge Clinical Impression: COVID-19, Rhabdomyolysis, Dehydration Patient Disposition: Admitted As Observation Condition: Unchanged Prescriptions: No Action atenolol 100 mg tablet 100 mg PO omeprazole 20 mg capsule,delayed release(DR/EC) 20 mg PO furosemide 40 mg tablet 40 mg PO halobetasol propionate 0.05 % cream topical potassium chloride [Klor-Con M20] 20 mEq tablet,ER particles/crystals PO famotidine [Pepcid] 20 mg tablet 20 mg PO .evening meal Qty: 90 4RF rosuvastatin 20 mg tablet 20 mg PO QPM Eliquis 5 mg tablet 5 mg PO BID cholecalciferol (vitamin D3) [Vitamin D3] 50 mcg (2,000 unit) capsule 100 mcg PO QDAY acetylcysteine 600 mg capsule 600 mg PO QDAY Follow Up/Referrals: Kely Salas MD [Primary Care Provider] -
[2024-09-06] MEDS: 0.9 % SODIUM CHLORIDE 1000 ml 1,000 ML IV ×2 (21:03→22:02)
[2024-09-06 21:06] LABS: Bilirubin Urine 1+ (Negative); Blood Urine 3+ (Negative); Glucose Urine Negative (Negative); Ketones Urine Negative (Negative); Leukocyte Esterase Urine Negative (Negative); Nitrite Urine Negative (Negative); Protein Urine 3+ (Negative); Specific Gravity Urine >= 1.030 (1.000-1.030); Urobilinogen Urine 0.2 (0.2-1.0); pH Urine 5.5 (5.0-8.5)
[2024-09-06 21:09] LABS: Basophils Percent Auto 0.1 % (0.0-3.0); Eosinophils Percent Auto 0.1 % (0.0-7.0); Hematocrit 47.3 % (33.0-51.0); Hemoglobin* 15.5 gm/dL (12.0-16.0); Immature Granulocytes Pct Auto 0.8 %; Lymphocytes Percent Auto 7.4 % (20-44); Mean Corpuscular HGB Conc 33 gm/dL (32-36); Mean Corpuscular Hemoglobin 30 pg (26-34); Mean Corpuscular Volume 92 fL (80-100); Monocytes Percent Auto 6.9 % (0.0-11.0); Neutrophils Percent Auto 84.7 % (42.0-72.0); Platelet Count* 199 K/uL (140-440); RDW Coefficient of Variation % 13.8 % (11.5-15.5); Red Blood Count 5.13 m/uL (4.00-5.20); White Blood Count* 14.22 K/uL (4.50-11.00)
[2024-09-06 21:10] LABS: Appearance Urine Slightly Cloudy (Clear)
[2024-09-06 21:12] LABS: Chloride* 99 mmol/L (96-114); Sodium* 141 mmol/L (135-149)
[2024-09-06 21:13] LABS: Potassium* 3.8 mmol/L (3.6-5.1)
[2024-09-06 21:15] LABS: Anion Gap 15 mEq/L (7-15); Blood Urea Nitrogen* 46 mg/dL (7-30); Carbon Dioxide* 27 mmol/L (20-32); Creatinine* 1.1 mg/dL (0.5-1.5); Estimated Glomerular Filt Rate 51 ml/min
[2024-09-06 21:16] LABS: Calcium* 9.7 mg/dL (8.4-10.6); Glucose* 128 mg/dL (60-115)
[2024-09-06 21:28] LABS: Slide Review Reflex No
[2024-09-06 21:29] LABS: Troponin I* 0.14 ng/mL (0.01-0.04)
[2024-09-06 21:34] LABS: Bacteria Urine Few; Squamous Epithelial Cell Urine Few (None-Few)
[2024-09-06 21:35] LABS: Coarse Granular Casts Urine Few; Hyaline Casts Urine Few (None-Few); Red Blood Cell Casts Urine Few
--- OUTSIDE RECORDS SUMMARY | 2024-09-06 21:49 | XMS_ITS | Clinical Summary ---
Author Organization [facility] Address [address] [place] [id number] Care Team Providers Care Research Program Manager Name Role Phone Kely Salas MD Primary Care Provider [phone] Allergies No known active allergies Medications Cholecalciferol, [...] Department Care Team Description 07/05/2024 10:15 AM COMPOSITION FLOOR SETTER Ancillary Procedure [facility] [address] [place] [address] 07/05/2024 Travel 06/21/2024 Telephone [facility] [address] [place] [address] Kely Salas MD Referral 06/20/2024 Telephone [facility] [address] [place] [address] Kely Salsa MD REQUESTING CALL BACK 06/08/2024 9:40 AM COMPOSITION FLOOR SETTER Ancillary Procedure [facility] [address] [facility] [address] 06/08/2024 8:45 AM COMPOSITION FLOOR SETTER Office Visit [facility] [address] [place] [address] Kely Salas MD Medicare ANNUAL (subsequent) Visit [...] on file Legal Sex Female 5:23 AM COMPOSITION FLOOR SETTER Gender Identity Not on file Sexual Orientation [...] Comments Blood Pressure 134/83 06/08/2024 8:34 AM COMPOSITION FLOOR SETTER Pulse 77 06/08/2024 8:34 AM COMPOSITION FLOOR SETTER Temperature 36.6 C (97.9 F) 08/11/2023 11:34 AM COMPOSITION FLOOR SETTER Respiratory Rate 16 12/16/2021 3:58 PM CDT Oxygen Saturation 99% 06/08/2024 8:34 AM COMPOSITION FLOOR SETTER Inhaled Oxygen Concentration - - Weight 108.9 kg (240 lb) 06/08/2024 8:34 AM COMPOSITION FLOOR SETTER Height 151.6 cm (4' 11.69) 06/08/2024 8:[address] Body Mass Index 47.37 06/08/2024 8:34 AM COMPOSITION FLOOR SETTER Plan of Treatment Health Maintenance Due Date [...] LUMBAR WO Routine 07/05/2024 10 :15 AM COMPOSITION FLOOR SETTER Chronic left-sided low back pain without sciatica XR MAMMO BILAT SCREENING Routine 06/08/2024 9:40 AM COMPOSITION FLOOR SETTER Visit for screening mammogram TSH WITH REFLEX Routine 06/08/2024 9:23 AM COMPOSITION FLOOR SETTER Tremor of left hand COMP METABOLIC PANEL Routine 06/08/2024 9:23 AM COMPOSITION FLOOR SETTER Hyperparathyroidism (HC) Hypokalemia Prediabetes LIPID PANEL W REFLEX MEASURED LDL Routine 06/08/2024 9:23 AM COMPOSITION FLOOR SETTER Hyperlipidemia, unspecified hyperlipidemia type HEMOGLOBIN A1C Routine 06/08/2024 9:23 AM COMPOSITION FLOOR SETTER Prediabetes PTH,INTACT Routine 06/08/2024 9:23 AM COMPOSITION FLOOR SETTER Hyperparathyroidism (HC) XR DXA BONE DENSITY 2 SITES AXIAL AND 1 SITE PERIPHERAL Routine 12/21/2021 8:48 AM CDT Hyperparathyroidism (HC) from Last 3 Months or Most Recently Relevant to Health Maintenance Results * MR SPINE LUMBAR WO (07/05/2024 10:15 AM COMPOSITION FLOOR SETTER) Anatomical Region Laterality Modality Spine, LUMBAR SPINE Magnetic Res onance 07/05/2024 2:47 PM COMPOSITION FLOOR SETTER Impressions 07/05/2024 2:47 PM COMPOSITION FLOOR SETTER 1. Multilevel disc height loss with associated [...] PM (Electronically Signed) Narrative 07/05/2024 2:47 PM COMPOSITION FLOOR SETTER For Patients: As a result of the [...] L1-L3. Vertebral body heights are maintained. No [id number] infiltrative lesion is identified. There is advancedmultilevel [...] XR MAMMO BILAT SCREENING (06/08/2024 9:40 AM COMPOSITION FLOOR SETTER) Anatomical Region Laterality Modality BREASTS, Breast Left, Breast Right Bilateral Mammography Impressions 06/08/2024 3:26 PM COMPOSITION FLOOR SETTER There is no radiographic evidence for malignancy. Recommend annual mammograms. MAMMOGRAM ASSESSMENT: ACR 1 Negative PATIENTS: You will also receive a letter with your examination results in an easy to read format. If you have questions about your results, please contact your referring provider. Narrative 06/08/2024 3:26 PM COMPOSITION FLOOR SETTER For Patients: As a result of the 21st Century Cures Act, medical imaging exams and procedure reports are released immediately into your electronic medical record. You may view this report before your referring provider. If you have questions, please contact your health care provider. XR MAMMO BILAT SCREENING [[id number]] CLINICAL HISTORY: This is an asymptomatic 78 y.o. patient. INDICATION FOR EXAM: Mammogram Screening. TECHNIQUE: CC & MLO views were obtained. This study was evaluated with the assistance of Computer-Aided Detection. COMPARISON FILM: Yes 09/11/21 [facility] 07/31/20 [facility] FINDINGS: The breasts are almost entirely fatty. There are no dominant masses, suspicious micro calcifications or areas of architectural distortion. Kely Salas MD MAMMO Final Resul t * (ABNORMAL) HEMOGLOBIN A1C (06/08/2024 9:23 AM COMPOSITION FLOOR SETTER) HEMOGLOBIN A1C 6.8(H) <5.7 % of total [...] BLOOD SPECIMEN / Unknown 06/08/2024 9:23 AM COMPOSITION FLOOR SETTER 06/08/2024 9:23 AM COMPOSITION FLOOR SETTER Kely Salas MD CHEMISTRY Final Resul t [facility] [address] [place] [address], [place] [phone] [facility] [address] [facility] [place] [address] * TSH WITH REFLEX (06/08/2024 9:23 AM COMPOSITION FLOOR SETTER) TSH W/REFLEX TO FT4 2.53 0.40 - 4.50 mIU/L [facility] Blood BLOOD SPECIMEN / Unknown 06/08/2024 9:23 AM COMPOSITION FLOOR SETTER 06/08/2024 9:23 AM COMPOSITION FLOOR SETTER Kely Salas MD CHEMISTRY Final Resul t [facility] [address] [place] [address], [place] [phone] [facility] [address] [facility] [place] [address] * (ABNORMAL) LIPID PANEL W REFLEX MEASURED LDL (06/08/2024 9:23 AM COMPOSITION FLOOR SETTER) CHOLESTEROL, TOTAL 117 <200 mg/dL [facility] [...] LDL-C. Janusz ADAMS et al. MELONY. 2013;310(19): 0559-7097 (http://education.[employer]/faq/KJL720) CHOL/HDLC RATIO 2.5 <5.0 (calc) [facility] NON HDL CHOLESTEROL 70 <130 mg/dL (calc) [facility] Comment: For patients with diabetes plus 1 major ASCVD risk factor, treating to a non-HDL-C goal of <100 mg/dL (LDL-C of <70 mg/dL) is considered a therapeutic option. Blood BLOOD SPECIMEN / Unknown 06/08/2024 9:23 AM COMPOSITION FLOOR SETTER 06/08/2024 9:23 AM COMPOSITION FLOOR SETTER us Kely Salas MD CHEMISTRY Final Resul t [place] [facility] [address] [place] [address], [facility] [address] [place] [address] * (ABNORMAL) PTH,INTACT (06/08/2024 9:23 AM COMPOSITION FLOOR SETTER) PARATHYROID HORMONE, INTACT 83(H) 16 - 77 pg/mL [facility] Comment: Interpretive Guide Intact PTH Calcium ------- Normal Parathyroid Normal Normal Hypoparathyroidism Low or Low Normal Low Hyperparathyroidism Primary Normal or High High Secondary High Normal or Low Tertiary High High Non-Parathyroid Hypercalcemia Low or Low Normal High CALCIUM 10.4 8.6 - 10.4 mg/dL [facility] Blood BLOOD SPECIMEN / Unknown 06/08/2024 9:23 AM COMPOSITION FLOOR SETTER 06/08/2024 9:23 AM COMPOSITION FLOOR SETTER us Kely Salas MD SEND OUTS Final Resul t [place] [facility] [address] [place] [address], [facility] [address] [place] [address] * (ABNORMAL) COMP METABOLIC PANEL (06/08/2024 9:23 AM COMPOSITION FLOOR SETTER) GLUCOSE 100(H) 65 - 99 mg/dL [facility] Comment: Fasting reference interval For someone without known diabetes, a glucose value between 100 and 125 mg/dL is consistent with prediabetes and should be confirmed with a follow-up test. UREA NITROGEN (BUN) 18 7 - 25 mg/dL [facility] CREATININE 1.03(H) 0.60 - 1.00 mg/dL [facility] EGFR 55(L) > OR = 60 mL/min/1.7 3m2 [facility] BUN/CREATININE RATIO 17 6 - 22 (calc) [facility] SODIUM 143 135 - 146 mmol/L [facility] POTASSIUM 3.7 3.5 - 5.3 mmol/L [facility] CHLORIDE 98 98 - 110 mmol/L [facility] CARBON DIOXIDE 27 20 - 32 mmol/L [facility] CALCIUM 10.4 8.6 - 10.4 [...] BLOOD SPECIMEN / Unknown 06/08/2024 9:23 AM COMPOSITION FLOOR SETTER 06/08/2024 9:23 AM COMPOSITION FLOOR SETTER us Kely Salas MD CHEMISTRY Final Resul t [place] [facility] [address] [place] [address], [facility] [address] * XR DXA BONE DENSITY 2 SITES [...] recommended in 3-5 years. Akila Buitrago PA-C [facility] 12/23/2021 Narrative 12/23/2021 7:46 AM CDT For Patients: Results are automatically released to your [facility] ([employer] account once available, in compliance with federal regulations. This means that you may see your results before your provider has had a chance to review them. Please allow 2-3 business days for your provider to comment on the results. XR DXA Bone Mineral Density (BMD) EXAM LOCATION: [address] [address] PATIENT NAME: Nadia Howard DATE OF : [...] two scanners are made by the same financial market dealer. PROCEDURE: Dual-energy x-ray absorptiometry performed with routine [...] MEDICARE PART A HB ONLY BLUE [place] BLUE MR PB ONLY Care Teams Research Program Manager Relationship Specialty Start Date End Date Kely Salas MD [address] [place] [address] PCP - General Family Practice 12/14/19
[2024-09-06 21:54] LABS: PCR FLU A Negative PCR FLU A (Negative); PCR FLU B Negative PCR FLU B (Negative); PCR RSV Negative PCR RSV (Negative); SARS PCR* POSITIVE SARS-CoV-2 (Negative)
[2024-09-06 21:55] LABS: Creatine Kinase* 13004 U/L (41-117)
--- NOTE | 2024-09-06 22:03 | PM.IMHP1 ---
Hospitalist- H&P: HPI History of Present Illness Date Seen: 09/06/24 Chief complaint: Weakness Narrative: Nadia Howard is a 78 year old female BIBA after being found down at home for approximately 2-3 days (after discussion with daughter, it sounds like she probably fell on 09/04/2024). Patient had a mechanical fall while bending over to pick up worker a plastic bag off of her kitchen floor. She did not hit her head. She did not lose consciousness or have any preceding lightheadedness or palpitations, no chest pain. She was unable to get off of the floor and crawled on her kitchen to some chairs, but still could not get up. No other trauma, has bruising over LUE and chest wall but believes this is from crawling (anticoagulated). Daughter and son-in-law checked on her today and found her down, calling the ambulance. Noted to feel chilled on Tuesday, believes her COVID infection his likely been present for about 5 days. Mild congestion and intermittent cough. ER: - positive COVID - presenting HR 120 (a fib RVR), improved to 100-110 after IVFs - BPs 100s/60s, afebrile, no hypoxia - CK of 13,004 - BUN 46, CR 1.1 (baseline 0.9-1.0) - LFTs: Bilirubin 1.7, AST 400, ALT 122 (baseline normal) - troponin of 0.14, no acute ST changes on EKG (a fib RVR) - received 1L NS bolus, 2nd L starting upon arrival to the floor, garzon in place Patient is admitted to the hospital for elevated LFTs, weakness, and rhabdomyolysis in the setting of COVID infection. Histories updated below, Dr. Salas is PCP. Has missed 2-3 days of medication, anticoagulated on Eliquis for atrial fibrillation. Review of Systems Status of ROS: Reports: 10 or more systems reviewed and unremarkable except as noted in History and below Narrative: - no chest pain, no dyspnea - + congestion PFSH PFS Medical History (Updated 09/06/24 @ 23:42 by Matilda Astudillo MD) Non-insulin dependent diabetes mellitus Left lumbar pain ?M54.50 - Low back pain, unspecified (ICD-10) Vitamin D deficiency ?E55.9 - Vitamin D deficiency, unspecified (ICD-10) HTN (hypertension) ?I10 - Essential (primary) hypertension (ICD-10) Morbid obesity ?E66.01 - Morbid (severe) obesity due to excess calories (ICD-10) Hyperlipidemia ?E78.5 - Hyperlipidemia, unspecified (ICD-10) Hyperparathyroidism ?E21.3 - Hyperparathyroidism, unspecified (ICD-10) GERD (gastroesophageal reflux disease) ?K21.9 - Gastro-esophageal reflux disease without esophagitis (ICD-10) Atrial fibrillation ?I48.91 - Unspecified atrial fibrillation (ICD-10) Polio ?A80.9 - Acute poliomyelitis, unspecified (ICD-10) Surgical History History of carpal tunnel surgery of right wrist ?Z98.890 - Other specified postprocedural states (ICD-10) Hx of LASIK ?Z98.890 - Other specified postprocedural states (ICD-10) History of cataract surgery ?Z98.49 - Cataract extraction status, unspecified eye (ICD-10) H/O: hysterectomy ?Z90.710 - Acquired absence of both cervix and uterus (ICD-10) Social History (Updated 09/06/24 @ 23:43 by Matilda Astudillo MD) Narrative: Lives independently, daughter Kimberly would be MDM if needed. Only resuscitate with a witnessed arrest, no desire to be on a machine for any period of time. Nonsmoker, no ETOH. Smoking Status: Never smoker Do you use any of these nicotine containing products: None Second hand tobacco smoke exposure: No Non-prescribed substance use: denies use Meds Home Medications and Allergies Home Medications ?Medication ?Instructions ?Recorded ?Confirmed ?Type atenolol 100 mg tablet 100 mg PO Q24H 06/23/22 09/06/24 History furosemide 40 mg tablet 40 mg PO BID@09,14 06/23/22 09/06/24 History halobetasol propionate 0.05 % 1 applic topical 06/23/22 07/20/23 History topical cream omeprazole 20 mg capsule,delayed 20 mg PO DAILY 06/23/22 09/06/24 History release potassium chloride 20 mEq 20 meq PO DAILY 06/23/22 09/06/24 History tablet,extended release(part/cryst) (Klor-Con M) acetylcysteine 600 mg capsule 600 mg PO QDAY 07/20/23 07/20/23 History apixaban 5 mg tablet (Eliquis) 5 mg PO BID 07/20/23 09/06/24 History cholecalciferol (vitamin D3) 50 100 mcg PO QDAY 07/20/23 07/20/23 History mcg (2,000 unit) capsule (Vitamin D3) rosuvastatin 20 mg tablet 20 mg PO QPM 07/20/23 09/06/24 History Allergies Allergy/AdvReac Type Severity Reaction Status Date / Time No Known Drug Allergies Allergy Unverified 07/20/23 09:51 Exam Narrative: Exam Narrative: GEN: Alert and sitting comfortably in bed, nontoxic HEENT: EOMIs bilaterally, no scleral icterus CV: Irregular, rate in the 90s R: Mild biapical wheezing Ab: Protuberant, no ttp or masses Ext: no concerning LE edema, able to move extremities with generalized discomfort Skin: Bruising over L shoulder, L chest wall, under chin. Hemostatic skin tear L elbow. + irritation skin folds c/w yeast dermatitis Neuro: No focal deficits on limited exam Psych: Appropriate Const: Vital Signs, click to edit/add: Vital Signs - 24 hr 09/06/24 20:44 09/06/24 21:07 09/06/24 21:15 Temperature 97.8 F Pulse Rate 106 H Pulse Rate [Pulse Oximeter] 120 H Respiratory Rate 18 20 Blood Pressure 103/56 L Blood Pressure [Ri ght Upper Arm] 110/67 Pulse Oximetry 95 95 98 Oxygen Delivery Me thod Room Air 09/06/24 21:24 09/06/24 21:44 Temperature Pulse Rate 99 101 H Pulse Rate [Pulse Oximeter] Respiratory Rate 24 28 H Blood Pressure 104/37 L 100/44 L Blood Pressure [Ri ght Upper Arm] Pulse Oximetry 98 99 Oxygen Delivery Me thod Hospitalist - H&P: Result Labs Labs: Short CBC 09/06/24 Range/Units 20:54 WBC 14.22 H (4.50-11.00) K/uL Hgb 15.5 (12.0-16.0) gm/dL Hct 47.3 (33.0-51.0) % Plt Count 199 (140-440) K/uL BMP 09/06/24 20:54 Sodium 141 Potassium 3.8 Chloride 99 Carbon Dioxide 27 BUN 46 H Creatinine 1.1 Glucose 128 H Calcium 9.7 Cardiac Enzymes 09/06/24 Range/Units 20:54 Total Creatine Kinase 25539 H (41-117) U/L Troponin I 0.14 H* (0.01-0.04) ng/mL Urine 09/06/24 Range/Units 21:00 Urine Color Yellow (Yellow) Urine Appearance Slightly Cloudy A (Clear) Urine pH 5.5 (5.0-8.5) Ur Specific [place] >= 1.030 (1.000-1.030) Urine Protein 3+ A (Negative) Urine Glucose (UA) Negative (Negative) Assessment and Plan Assessment and plan (1) COVID-19: Problem comment: - symptoms likely began 09/01 - no hypoxia, does not require any COVID specific therapies at this time Status: Acute (2) Rhabdomyolysis: Problem comment: - 2/2 fall in the setting of COVID and being down at home for 2-3 days, elevated LFTs - IVF rehydration, follow CK and LFTs Status: Acute (3) Elevated troponin: Problem comment: - likely related to rhabdo, no CP or acute EKG changes - follow troponin, repeat TTE (last TTE in 2020 with results below): Final Impressions: 1. Normal LV size, mildly increased wall thickness, low normal global systolic function with an estimated EF of 50 - 55%. 2. Mildly enlarged left atrium. 3. The aortic valve is trileaflet and sclerotic, no stenosis and mild regurgitation. 4. The mitral valve is sclerotic, mild mitral regurgitation. Status: Acute (4) Atrial fibrillation: Problem comment: - as an outpatient, on Atenolol and Apixaban - rate improving after IVF administration, continue Atenolol, restart Apixaban tomorrow if remains clinically stable Status: Acute (5) Non-insulin dependent diabetes mellitus: Problem comment: - A1C 6.8 05/2024 - accselena, SSI Status: Acute (6) Yeast dermatitis: Problem comment: - Nystatin powder Status: Acute (7) Fall: Problem comment: - mechanical fall at home, presumably 09/04 per daughter - was unable to get up on her own, therapies ordered Status: Acute Plan - per above - daughter and son-in-law updated at bedside, questions answered - requires inpatient level of care given degree of rhabdomyolysis with hepatic involvement IVF administration, monitoring of troponin
[2024-09-06 22:20] LABS: Albumin* 4.5 g/dL (3.3-5.0)
[2024-09-06 22:23] LABS: Alkaline Phosphatase* 120 U/L (40-150); Aspartate Amino Transferase* 409 U/L (12-35); Bilirubin Direct* 0.4 mg/dL (0.0-0.5); Bilirubin Total* 1.7 mg/dL (0.1-1.5); Total Protein* 7.8 g/dL (6.0-8.3)
[2024-09-06 22:24] LABS: Alanine Aminotransferase* 122 U/L (4-35)
[2024-09-06 23:52] LABS: Color Urine Brown (Yellow)
[2024-09-07] VITALS (11 sets, daily range): BP systolic 98–122; BP diastolic 51–84; PULSE 86–111; RESP 18–26; TEMP 36.4–37; O2SAT 94–98; BMI 44.1
[2024-09-07] MEDS: 0.9 % SODIUM CHLORIDE 1000 ml 1,000 ML 125 ML IV ×3 (00:23→16:51)
[2024-09-07] MEDS: METOPROLOL TARTRATE 1 MG/ML inj 5 MG IVP (01:29)
[2024-09-07] MEDS: OMEPRAZOLE 20 MG CAPSULE DR PO (06:29)
--- NOTE | 2024-09-07 06:41 | PC.NURSE ---
Pt arrived to the unit @ 2031, via bed. Accompanied by daughter and son-in-law. Admission information given by Pt and daughter. Pt AxOx4, cooperative, pleasant. Pt has chronic body aches and pains, refusing PRN medications. Tolerating chronic pain and stated no new pain present. Pt denies SOB, NAUSEA, CP. Expiratory wheezing present. Intermittent, productive cough present. VSS on RA. Tele: Afib RVR. PRN metoprolol given once due to HR ranging from 115-130. NS running @ 125. Pt oral fluid intake excellent. Mobley in place, patent, draining. Pt has scattered bruising throughout the body due to fall. Skin tear present on the L elbow, open to air with no draining. Pt able to sleep for majority of the shift. Continuous pulse ox in place with sats staying above 90%. Pt appears resting watching television with call light in reach.
[2024-09-07 06:53] LABS: Basophils Absolute Auto 0.01 K/uL (0.00-0.30); Basophils Percent Auto 0.1 % (0.0-3.0); Eosinophils Absolute Auto 0.02 K/uL (0.00-0.50); Eosinophils Percent Auto 0.2 % (0.0-7.0); Hematocrit 39.2 % (33.0-51.0); Hemoglobin* 12.7 gm/dL (12.0-16.0); Immature Granulocytes Abs Auto 0.03 K/uL (0.00-0.30); Immature Granulocytes Pct Auto 0.3 %; Lymphocytes Percent Auto 11.2 % (20-44); Mean Corpuscular HGB Conc 32 gm/dL (32-36); Mean Corpuscular Hemoglobin 30 pg (26-34); Mean Corpuscular Volume 93 fL (80-100); Monocytes Percent Auto 7.6 % (0.0-11.0); Neutrophils Percent Auto 80.6 % (42.0-72.0); Platelet Count* 173 K/uL (140-440); RDW Coefficient of Variation % 14.1 % (11.5-15.5); White Blood Count* 10.46 K/uL (4.50-11.00)
[2024-09-07 06:59] LABS: HCO3 VBG 22 mmol/L (21-28); PCO2 VBG 36 mmHG (40-50); pH VBG 7.399 (7.32-7.43)
[2024-09-07 07:21] LABS: Albumin* 3.4 g/dL (3.3-5.0); Chloride* 105 mmol/L (96-114); Potassium* 3.4 mmol/L (3.6-5.1); Sodium* 138 mmol/L (135-149)
[2024-09-07 07:23] LABS: Bilirubin Total* 1.3 mg/dL (0.1-1.5); Creatinine* 0.8 mg/dL (0.5-1.5); Est. Creatinine Clearance* 39.39; Estimated Glomerular Filt Rate 75 ml/min; Slide Review Reflex No
[2024-09-07 07:24] LABS: Alanine Aminotransferase* 100 U/L (4-35); Alkaline Phosphatase* 84 U/L (40-150); Anion Gap 12 mEq/L (7-15); Aspartate Amino Transferase* 312 U/L (12-35); Blood Urea Nitrogen* 39 mg/dL (7-30); Calcium* 8.5 mg/dL (8.4-10.6); Carbon Dioxide* 21 mmol/L (20-32); Glucose* 89 mg/dL (60-115); Total Protein* 5.9 g/dL (6.0-8.3)
[2024-09-07 07:25] LABS: Magnesium* 2.2 mg/dL (1.5-2.6)
[2024-09-07 07:43] LABS: Troponin I* 0.12 ng/mL (0.01-0.04)
[2024-09-07 08:06] LABS: Creatine Kinase* 10448 U/L (41-117)
[2024-09-07] MEDS: atenoloL 50 MG TABLET 100 MG PO (08:26)
--- NOTE | 2024-09-07 10:55 | PM.IMPN1 ---
Progress Note: A&P Assessment and plan (1) COVID-19: Problem details: - symptoms likely began 09/01 - no hypoxia, not immunosuppressed, does not require any COVID specific therapies at this time Status: Acute (2) Rhabdomyolysis: Problem details: - 2/2 fall in the setting of COVID and being down at home for 2-3 days, elevated CK, BUN, and LFTs - continue IVF rehydration, monitoring for fluid overload - CK 13,004 -> 10,448 - Total bili 1.7 -> 1.3, AST/ALT 409/122 -> 312/100 - BUN 43 -> 39 Status: Acute (3) Elevated troponin: Problem details: - likely related to rhabdo, no CP or acute EKG changes - follow troponin 0.14 -> 0.12, no chest pain - repeat TTE ordered (last TTE in 2020 with results below): Final Impressions: 1. Normal LV size, mildly increased wall thickness, low normal global systolic function with an estimated EF of 50 - 55%. 2. Mildly enlarged left atrium. 3. The aortic valve is trileaflet and sclerotic, no stenosis and mild regurgitation. 4. The mitral valve is sclerotic, mild mitral regurgitation. Status: Acute (4) Atrial fibrillation: Problem details: - as an outpatient, on Atenolol and Apixaban - rate improving after IVF administration, continue Atenolol, Apixiban restarted 09/07 Status: Acute (5) Non-insulin dependent diabetes mellitus: Problem details: - A1C 6.8 05/2024 - accuchecks, SSI Status: Acute (6) Yeast dermatitis: Problem details: - Nystatin powder Status: Acute (7) Fall: Problem details: - mechanical fall at home, presumably 09/04 per daughter - has denied acute injuries or related pain, no head injury. No imaging done - consider if new or worsening sxs - was unable to get up on her own, therapies ordered - discussed [facility], patient not currently interested. Has expectations to return home following hospital stay as she has to clean up the house following her fall Status: Acute Time Spent With Patient Total time spent: Today I spent 45 minutes seeing the patient, discussing the patient with ER staff, reviewing Expanse and Epic notes/diagnostics, discussing the care plan with our team that includes social work, PT/OT, pharmacy, RT, penitentiary and documenting my impressions and plan in the medical record. Subjective Date Seen: 09/07/24 Interval history: Patient is seen sitting up in bed this morning. Denies headache or dizziness. Denies chest pain or shortness of breath. Has chronic pains, mostly arthritic, throughout her body otherwise. Reports no worsening pain or injury from fall several days ago. Remains afebrile. No nausea vomiting. Exam Narrative: Exam Narrative: PHYSICAL EXAM General: Pleasant, conversant, NAD HEENT: Normocephalic, atraumatic, sclera white, EOMI Cardiovascular: IRRR. No pitting edema yet noted Pulmonary: CTA bilaterally without rhonchi, rales, expiratory wheezes. No dyspnea on room air Abdominal: Soft, nondistended, NTTP Neurological: Alert, answering questions appropriately, cranial nerves intact, no focal findings Extremities: No gross joint deformity or swelling. Limited AROMI. Neurovascularly intact Skin: Warm, dry. Multiple bruises noted, aging from fall Const: Vital Signs, click to edit/add: Vital Signs - 24 hr 09/06/24 20:44 09/06/24 21:07 09/06/24 21:15 Temperature 97.8 F Pulse Rate 106 H Pulse Rate [Pulse Oximeter] 120 H Respiratory Rate 18 20 Blood Pressure 103/56 L Blood Pressure [Le ft Arm] Blood Pressure [Ri ght Arm] Blood Pressure [Ri ght Upper Arm] 110/67 Pulse Oximetry 95 95 98 Oxygen Delivery Me thod Room Air 09/06/24 21:24 09/06/24 21:44 09/06/24 22:03 Temperature Pulse Rate 99 101 H 107 H Pulse Rate [Pulse Oximeter] Respiratory Rate 24 28 H 18 Blood Pressure 104/37 L 100/44 L 103/72 Blood Pressure [Le ft Arm] Blood Pressure [Ri ght Arm] Blood Pressure [Ri ght Upper Arm] Pulse Oximetry 98 99 98 Oxygen Delivery Me thod 09/06/24 22:22 09/06/24 22:28 09/06/24 22:29 Temperature 97.8 F 97.8 F Pulse Rate 107 H Pulse Rate [Pulse Oximeter] 105 H 105 H Respiratory Rate 18 18 18 Blood Pressure 102/81 Blood Pressure [Le ft Arm] Blood Pressure [Ri ght Arm] Blood Pressure [Ri ght Upper Arm] 105/64 105/64 Pulse Oximetry 99 99 Oxygen Delivery Me thod Room Air 09/07/24 00:08 09/07/24 00:08 09/07/24 00:32 Temperature 98.2 F Pulse Rate 111 H Pulse Rate [Pulse Oximeter] 99 Respiratory Rate 18 18 Blood Pressure Blood Pressure [Le ft Arm] 113/78 Blood Pressure [Ri ght Arm] Blood Pressure [Ri ght Upper Arm] Pulse Oximetry 98 98 Oxygen Delivery Me thod Room Air Room Air 09/07/24 01:29 09/07/24 03:00 09/07/24 07:00 Temperature 98.2 F Pulse Rate 91 Pulse Rate [Pulse Oximeter] 111 H Respiratory Rate 18 Blood Pressure Blood Pressure [Le ft Arm] 109/84 109/57 L Blood Pressure [Ri ght Arm] 119/56 L Blood Pressure [Ri ght Upper Arm] Pulse Oximetry 94 Oxygen Delivery Sc thod Room Air 09/07/24 08:01 09/07/24 08:01 09/07/24 08:01 Temperature Pulse Rate Pulse Rate [Pulse Oximeter] 92 Respiratory Rate 18 24 Blood Pressure Blood Pressure [Le ft Arm] Blood Pressure [Ri ght Arm] Blood Pressure [Ri ght Upper Arm] Pulse Oximetry 95 95 Oxygen Delivery Sc thod Room Air 09/07/24 08:01 Temperature 97.7 F Pulse Rate Pulse Rate [Pulse Oximeter] 92 Respiratory Rate 24 Blood Pressure Blood Pressure [Le ft Arm] Blood Pressure [Ri ght Arm] 103/51 L Blood Pressure [Ri ght Upper Arm] Pulse Oximetry 95 Oxygen Delivery Sc thod Room Air Labs Labs: Laboratory Results - last 24 hr 09/06/24 09/06/24 09/06/24 20:54 21:00 22:08 WBC 14.22 H RBC 5.13 Hgb 15.5 Hct 47.3 MCV 92 MCH 30 MCHC 33 RDW Coeff of Aron 13.8 Plt Count 199 Neut % (Auto) 84.7 H Lymph % (Auto) 7.4 L [place] % (Auto) 6.9 Eos % (Auto) 0.1 Baso % (Auto) 0.1 Neut # (Auto) 12.00 H Lymph # (Auto) 1.10 [place] # (Auto) 1.00 H Eos # (Auto) 0.00 Baso # (Auto) 0.00 Abs Immat Gran (auto) 0.10 Imm/Tot Granulo (auto) 0.8 VBG pH VBG pCO2 VBG pO2 VBG HCO3 Sodium 141 Potassium 3.8 Chloride 99 Carbon Dioxide 27 Anion Gap 15 BUN 46 H Creatinine 1.1 Estimated Creat Clear Estimated GFR 51 Glucose 128 H Calcium 9.7 Magnesium Total Bilirubin 1.7 H Direct Bilirubin 0.4 AST 409 H ALT 122 H Alkaline Phosphatase 120 Total Creatine Kinase 62944 H Troponin I 0.14 H* Total Protein 7.8 Albumin 4.5 Urine Color Brown A Urine Appearance Slightly Cloudy A Urine pH 5.5 Ur Specific [place] >= 1.030 Urine Protein 3+ A Urine Glucose (UA) Negative Urine Ketones Negative Urine Blood 3+ A Urine Nitrite Negative Urine Bilirubin 1+ A Urine Urobilinogen 0.2 Ur Leukocyte Esterase Negative Urine RBC 10-25 A Urine WBC 2-5 Ur Squamous Epith Cells Few Urine Bacteria Few A Hyaline Casts Few Coarse Granular Casts Few A RBC Casts Few A SARS-CoV-2 (PCR) POSITIVE SARS-CoV-2 A Influenza Type A (PCR) Negative PCR FLU A Influenza Type B (PCR) Negative PCR FLU B RSV (PCR) Negative PCR RSV Lab Acknowledgement Test Added 09/07/24 06:33 WBC 10.46 RBC 4.20 Hgb 12.7 Hct 39.2 MCV 93 MCH 30 MCHC 32 RDW Coeff of Aron 14.1 Plt Count 173 Neut % (Auto) 80.6 H Lymph % (Auto) 11.2 L [place] % (Auto) 7.6 Eos % (Auto) 0.2 Baso % (Auto) 0.1 Neut # (Auto) 8.40 H Lymph # (Auto) 1.20 [place] # (Auto) 0.80 Eos # (Auto) 0.02 Baso # (Auto) 0.01 Abs Immat Gran (auto) 0.03 Imm/Tot Granulo (auto) 0.3 VBG pH 7.399 VBG pCO2 36 L VBG pO2 62.0 H VBG HCO3 22 Sodium 138 Potassium 3.4 L Chloride 105 Carbon Dioxide 21 Anion Gap 12 BUN 39 H Creatinine 0.8 Estimated Creat Clear 39.39 Estimated GFR 75 Glucose 89 Calcium 8.5 Magnesium 2.2 Total Bilirubin 1.3 Direct Bilirubin AST 312 H ALT 100 H Alkaline Phosphatase 84 Total Creatine Kinase 95705 H Troponin I 0.12 H* Total Protein 5.9 L Albumin 3.4 Urine Color Urine Appearance Urine pH Ur Specific [place] Urine Protein Urine Glucose (UA) Urine Ketones Urine Blood Urine Nitrite Urine Bilirubin Urine Urobilinogen Ur Leukocyte Esterase Urine RBC Urine WBC Ur Squamous Epith Cells Urine Bacteria Hyaline Casts Coarse Granular Casts RBC Casts SARS-CoV-2 (PCR) Influenza Type A (PCR) Influenza Type B (PCR) RSV (PCR) Lab Acknowledgement
[2024-09-07] MEDS: NYSTATIN POWDER 1 APPLIC TOPICAL ×2 (12:27→20:56)
[2024-09-07] MEDS: APIXABAN 5 MG TABLET PO ×2 (12:27→20:44)
--- NOTE | 2024-09-07 12:28 | REH.OT ---
OT consult orders received. Evaluation attempted but was interrupted by need for medical procedure. OT will plan to complete evaluation tomorrow.
[2024-09-07] MEDS: FUROSEMIDE 10 MG/ML inj 40 MG IVP (15:58)
--- NOTE | 2024-09-07 18:52 | PC.NURSE ---
Nursing Care Hours: [id number] Pt this shift alert and oriented, calm and cooperative. Generalized pain acute on chronic. Bruise noted to upper L shoulder, under anterior neck and skin tear to L elbow covered with mepilex. Yu and pannus area cleaned and dried, nystatin applied. Tele shows afib with NVR. IV fluids running, pt drinking sufficient water. U/o lower than expected with fluid intake. Hospitalist made aware and lasix IV ordered. U/o increased in garzon, see I&O. Insulin held per sliding scale. Pt reported family h/o diabetes and family having health complications from DM. Pt expressed fear of being told by primary that she is prediabetic and states she is trying to lose weight. Pt confirms this is part of the reason she is declining meals as well as having a low appetite. Per pt daughter, pt was eating very little, maybe one meal a day prior to fall at home for this reason. Correctional Security Officer gave pt print out education on prediabetes and diabetes nutrition. Correctional Security Officer also spoke with pt about making healthy food choices with lean protein, complex carbs vs simple carbs. Pt receptive but needs reinforcement of education. Pt has steady gait with SB assist. Pt also refusing all adaptive equipment discussed with daughter including bathroom handles, bath seat, grabber tool for reaching things on the floor, etc. Pt states if she makes my home look like a alf, tell her I am not living there, I will leave.
[2024-09-08] MEDS: 0.9 % SODIUM CHLORIDE 1000 ml 1,000 ML 125 ML IV (00:59)
[2024-09-08 03:00] VITALS: BP 93/51; PULSE 93; RESP 22; TEMP 36.4; O2SAT 94
[2024-09-08] MEDS: OMEPRAZOLE 20 MG CAPSULE DR PO (06:33)
[2024-09-08 06:42] LABS: Hematocrit 36.7 % (33.0-51.0); Hemoglobin* 11.8 gm/dL (12.0-16.0); Mean Corpuscular HGB Conc 32 gm/dL (32-36); Mean Corpuscular Hemoglobin 30 pg (26-34); Mean Corpuscular Volume 94 fL (80-100); Platelet Count* 166 K/uL (140-440); Red Blood Count 3.89 m/uL (4.00-5.20); White Blood Count* 8.29 K/uL (4.50-11.00)
[2024-09-08 06:59] LABS: Slide Review Reflex No
[2024-09-08 07:09] LABS: Albumin* 3.3 g/dL (3.3-5.0)
[2024-09-08 07:10] LABS: Chloride* 103 mmol/L (96-114); Sodium* 135 mmol/L (135-149)
[2024-09-08 07:12] LABS: Creatinine* 0.7 mg/dL (0.5-1.5); Est. Creatinine Clearance* 39.39; Estimated Glomerular Filt Rate 88 ml/min
[2024-09-08 07:13] LABS: Alanine Aminotransferase* 90 U/L (4-35); Alkaline Phosphatase* 82 U/L (40-150); Anion Gap 11 mEq/L (7-15); Aspartate Amino Transferase* 291 U/L (12-35); Bilirubin Direct* 0.3 mg/dL (0.0-0.5); Bilirubin Total* 1.4 mg/dL (0.1-1.5); Blood Urea Nitrogen* 23 mg/dL (7-30); Calcium* 8.3 mg/dL (8.4-10.6); Carbon Dioxide* 21 mmol/L (20-32); Glucose* 73 mg/dL (60-115); Total Protein* 5.7 g/dL (6.0-8.3)
[2024-09-08 07:25] VITALS: PULSE 85; O2SAT 96
[2024-09-08 07:36] LABS: NT Pro B Type NatriureticPept* 1120 pg/mL; Potassium* 2.8 mmol/L (3.6-5.1)
--- NOTE | 2024-09-08 07:43 | PC.NURSE ---
Shift note ([id number]): Patient pleasant, alert and oriented. Ambulates with stand by assist. Mobley catheter patent with good output. Draining straw colored urine. Reported general discomfort but declined PRN pain medications when offered. Panis/Abdominal folds cleansed, dried and Nystatin powder applied. ABD pads placed in folds to prevent skin on skin.?
[2024-09-08 07:52] LABS: Creatine Kinase* 6970 U/L (41-117)
[2024-09-08 08:00] VITALS: BP 98/57; PULSE 93; RESP 18; RESP 20; RESP 22; TEMP 36.9; O2SAT 94; O2SAT 96
[2024-09-08] MEDS: atenoloL 50 MG TABLET 100 MG PO (08:44)
[2024-09-08] MEDS: APIXABAN 5 MG TABLET PO (08:45)
[2024-09-08] MEDS: POTASSIUM BICARB 25 MEQ EFFERVESCENT TAB PO ×2 (09:36→13:48)
[2024-09-08] MEDS: NYSTATIN POWDER 1 APPLIC TOPICAL (09:38)
[2024-09-08 11:00] VITALS: BP 101/62; PULSE 90; RESP 18; TEMP 36.8; O2SAT 95
[2024-09-08] MEDS: GABAPENTIN 100 MG CAPSULE PO (11:58)
--- NOTE | 2024-09-08 14:43 | PC.NURSE ---
Addendum entered by Karen Martins RN 09/08/24 18:59: Pt was picked up by daughter, Kimberly, & son in law. Reviewed DC instructions and answered all questions. DC to home @1551. Original Note: Pt up in room independent to BR with RN present. Chronic pain in back and shoulder, offered Aqua-K pad, ice, Tylenol, Lidocaine patch; pt refused all offerings. Encouraged nutritional meals to aid in healing and pre-diabetes diagnosis per pt. Pt ate omlete with meat, cheese, and veggies w/out complaint or nausea. Pt refused lunch and blood sugar check due to not wanting lunch. Educated pt on low sugar, high protein options, Life-Link, [id number], PT/OT to allow pt to remain independent living while staying safe from injury/falls. IV DC'd, cath tip intact. DC instructions given verbally and in writing. All questions answered. Pt is waiting for daughter and son-in -law to strip picker to return to pt's home.
--- NOTE | 2024-09-08 15:24 | P.DS_ITS ---
DS: Providers Provider Date Seen: 09/08/24 Date of admission: 09/06/24 23:12 Primary care physician: Kely Salas MD Admitting Clinician: Matilda Astudillo MD Consults: 09/06/24 23:12 Consult to Physical Therapy [CONS] Routine Comment: Reason(s) for PT Consult:: Evaluate and Treat Any Restrictions?:: No Restrictions Consult to Alarm Installer [CONS] Routine Comment: Reason for Consult:: Discharge Planning Needs 09/06/24 23:14 Consult to Occupational Therapy [CONS] Routine Comment: Reason(s) for OT Consult:: Evaluate and Treat Any Restrictions?:: Wt Bearing as Tolerated Attending Physician on discharge: Matilda Astudillo MD Date of Discharge: 09/08/24 DS: Diagnosis Discharge Diagnosis (1) Rhabdomyolysis: Status: Acute Problem details: - 2/2 fall in the setting of COVID and being down at home for 2-3 days, elevated CK, BUN, and LFTs. Creatinine will return to normal. BUN return to normal. LFTs down trended. Creatine kinase was down trending. Troponin was flat. Her potassium was low on discharge but patient was requesting discharge so we gave her oral supplementation and early follow-up. (2) COVID-19: Status: Acute Problem details: - symptoms likely began 09/01 - no hypoxia, not immunosuppressed, does not require any COVID specific therapies at this time (3) Elevated troponin: Status: Acute Problem details: - likely related to rhabdo, no CP or acute EKG changes - follow troponin 0.14 -> 0.12, no chest pain - repeat TTE ordered (last TTE in 2020 with results below): Final Impressions: 1. Normal LV size, mildly increased wall thickness, low normal global systolic function with an estimated EF of 50 - 55%. 2. Mildly enlarged left atrium. 3. The aortic valve is trileaflet and sclerotic, no stenosis and mild regurgitation. 4. The mitral valve is sclerotic, mild mitral regurgitation. (4) Fall: Status: Acute Problem details: - mechanical fall at home, presumably 09/04 per daughter - has denied acute injuries or related pain, no head injury. No imaging done - consider if new or worsening sxs - was unable to get up on her own, therapies ordered - discussed [facility], patient not currently interested. Has expectations to return home following hospital stay as she has to clean up the house following her fall (5) Atrial fibrillation: Status: Acute Problem details: - as an outpatient, on Atenolol and Apixaban - rate improving after IVF administration, continue Atenolol, Apixiban restarted 09/07 (6) Non-insulin dependent diabetes mellitus: Status: Acute Problem details: - A1C 6.8 05/2024 - VLADISLAV charles DS: Summary Time Spent with Patient Time attestation: Total time spent providing and/or coordinating discharge services: Exam Const: Vital Signs, click to edit/add: Vital Signs - 24 hr 09/07/24 15:52 09/07/24 15:52 09/07/24 15:52 Temperature Pulse Rate Pulse Rate [Pulse Oximeter] 91 Respiratory Rate 24 24 Blood Pressure [Le ft Arm] Blood Pressure [Ri ght Arm] Pulse Oximetry 97 97 Oxygen Delivery Me thod Room Air 09/07/24 15:52 09/07/24 19:00 09/07/24 19:34 Temperature 98.6 F 97.6 F Pulse Rate 87 Pulse Rate [Pulse Oximeter] 91 94 Respiratory Rate 24 22 Blood Pressure [Le ft Arm] Blood Pressure [Ri ght Arm] 101/65 111/55 L Pulse Oximetry 97 95 Oxygen Delivery Me thod Room Air Room Air 09/07/24 23:00 09/07/24 23:00 09/07/24 23:00 Temperature 98.1 F Pulse Rate Pulse Rate [Pulse Oximeter] 86 Respiratory Rate 22 Blood Pressure [Le ft Arm] Blood Pressure [Ri ght Arm] 109/59 L Pulse Oximetry 95 95 96 Oxygen Delivery Me thod Room Air Room Air 09/07/24 23:00 09/07/24 23:00 09/08/24 03:00 Temperature 97.6 F Pulse Rate 91 Pulse Rate [Pulse Oximeter] 93 Respiratory Rate 18 22 Blood Pressure [Le ft Arm] 93/51 L Blood Pressure [Ri ght Arm] Pulse Oximetry 94 Oxygen Delivery Me thod Room Air 09/08/24 07:25 09/08/24 07:25 09/08/24 08:00 Temperature Pulse Rate 85 Pulse Rate [Pulse Oximeter] 93 Respiratory Rate 22 Blood Pressure [Le ft Arm] Blood Pressure [Ri ght Arm] Pulse Oximetry 96 Oxygen Delivery Me thod 09/08/24 08:00 09/08/24 08:00 09/08/24 08:00 Temperature 98.5 F Pulse Rate Pulse Rate [Pulse Oximeter] 93 Respiratory Rate 20 20 18 Blood Pressure [Le ft Arm] 98/57 L Blood Pressure [Ri ght Arm] Pulse Oximetry 96 96 94 Oxygen Delivery Me thod Room Air Room Air Room Air 09/08/24 11:00 Temperature 98.3 F Pulse Rate Pulse Rate [Pulse Oximeter] 90 Respiratory Rate 18 Blood Pressure [Le ft Arm] 101/62 Blood Pressure [Ri ght Arm] Pulse Oximetry 95 Oxygen Delivery Me thod Room Air DS: Data Data Completed and Pending Labs on day of discharge: Labs from last 24 hours 09/08/24 06:01 WBC 8.29 RBC 3.89 L Hgb 11.8 L Hct 36.7 MCV 94 MCH 30 MCHC 32 Plt Count 166 Sodium 135 Potassium 2.8 L* Chloride 103 Carbon Dioxide 21 Anion Gap 11 BUN 23 Creatinine 0.7 Estimated Creat Clear 39.39 Estimated GFR 88 Glucose 73 Calcium 8.3 L Total Bilirubin 1.4 Direct Bilirubin 0.3 AST 291 H ALT 90 H Alkaline Phosphatase 82 Total Creatine Kinase 6970 H NT-Pro-B Natriuret Pep 1120 Total Protein 5.7 L Albumin 3.3 Discharge Plan Discharge Disposition: Home, Self-Care Date of Admission: 09/06/24 23:12 Attending Provider on Discharge: Marilu Dickerson Primary Care Provider: Kely Salas Condition: Unchanged Anticipated Discharge Date/Time: 09/08/24 11:18 Discharge Medications: New gabapentin 100 mg capsule 100 mg PO TID Qty: 60 0RF Continued atenolol 100 mg tablet 100 mg PO Q24H omeprazole 20 mg capsule,delayed release(DR/EC) 20 mg PO DAILY furosemide 40 mg tablet 40 mg PO BID@09,14 halobetasol propionate 0.05 % cream 1 applic topical .2-3X/WEEK Rx Instructions: uses 2-3 times/week potassium chloride [Klor-Con M20] 20 mEq tablet,ER particles/crystals 20 meq PO DAILY famotidine [Pepcid] 20 mg tablet 20 mg PO .evening meal Qty: 90 4RF rosuvastatin 20 mg tablet 20 mg PO QPM Eliquis 5 mg tablet 5 mg PO BID cholecalciferol (vitamin D3) [Vitamin D3] 50 mcg (2,000 unit) capsule 50 mcg PO DAILY Discharge Orders: Discharge Order (Routine); Ordered 09/08/24 Ordered By: Marilu Dickerson Patient Education: Gabapentin (By mouth), Rhabdomyolysis (DC), Diabetes and Nutrition (DC) Additional Instructions: 1. Continue to drink lots of fluids - approx 75-100 ounces a day if possible. 2. I've sent gabapentin 100mg capsules to [facility]. Start with taking 1-3 capsules at night; you can also take them in the morning and mid-day if they don't make you too sedated/sleepy. Some patients find doses of 300-600mg three times a day are really helpful for back and leg pain. Talk to your PCP regarding how to titrate this medication and for refills. 3. Highly recommend Life Alertwatch or pendant so you can continue to live independently. 4. Outpatient physical therapy for leg and trunk strength, mobility, and fall risk reduction is highly recommended. Your pcp can help find a program that will work for you. Activity Level: Activity as Tolerated Follow Up Appointments: Kely Salas MD [Primary Care Provider] - 09/18/24 12:45 pm ([facility] for follow up. ) Forms: [employer] Info Instructions
--- NOTE | 2024-09-10 16:27 | PC.SOCIAL ---
Social work: Received call from pt's dtrKimberly. Pt had been discharged home on Tuesday and dtr states she needs Home Health arranged. Per pt's chart, home health was offered and refused by pt as was information on home appraiser care and assisted living options. Dtr is open to receiving information on these services and states she has to wait until the patient decides care is needed. Per dtr, pt is agreeable to home care being arranged. Dtr was provided with list of home care agencies and requested the order be sent to any agency that could provide the services under pt's insurance. Dtr was pleased with this plan. Called and sent information to [facility] and awaiting call back with decision on acceptance of referral. Emailed information on home appraiser care and assisted living options to pt's dtr.
== END 2024-09-08 16:31 | disposition home or self-care (01) | DRG 557 ==
LOC: ED 22:07 → MEDSURG 09-07 08:15
PROVIDERS: Physician Assistant; Admitting Provider Family Medicine; Emergency Provider Emergency Medicine Emergency Medical Services; PCP Family Medicine; Visit Provider Family Medicine
DX: M62.82 Rhabdomyolysis (principal); U07.1 COVID-19; Z91.81 History of falling; W19.XXXA Unspecified fall, initial encounter; Y92.009 Unspecified place in unspecified non-institutional (private) residence as the place of occurrence of the external cause; R79.89 Other specified abnormal findings of blood chemistry; I48.91 Unspecified atrial fibrillation; E78.5 Hyperlipidemia, unspecified; E21.3 Hyperparathyroidism, unspecified; K21.9 Gastro-esophageal reflux disease without esophagitis; I10 Essential (primary) hypertension; Z79.01 Long term (current) use of anticoagulants; E11.9 Type 2 diabetes mellitus without complications; B37.2 Candidiasis of skin and nail; S40.012A Contusion of left shoulder, initial encounter; S20.212A Contusion of left front wall of thorax, initial encounter; S00.83XA Contusion of other part of head, initial encounter; S51.012A Laceration without foreign body of left elbow, initial encounter
CPT/HCPCS: 36415; 80048; 80053; 80076; 81001; 82550; 82803; 82962; 83735; 83880; 84484; 85025; 85027; 87086; 87631; 93005; 93306; 94761; 97110; 97116; 97161; 97165; 97530; 97535; 99284; 99285; A9270; J1940; J7030

== ENCOUNTER 2024-09-24 17:00 | Emergency (ER) | payer MEDICARE, BC, SELFPAY ==
[2024-09-24 17:14] VITALS: BP 133/64; PULSE 110; RESP 20; TEMP 36.4; O2SAT 99
--- NOTE | 2024-09-24 17:54 | ED.GENADULT ---
HPI - General Adult General Chief complaint: Lower Extremity Swelling Stated complaint: L leg swelling Time Seen by Provider: 09/24/24 17:42 History of Present Illness HPI narrative: This 78-year-old female comes in with her daughter with concern of some swelling in her left lower extremity. The patient is on Eliquis and does not report any injury event except that she did fall a couple weeks ago and was down for a day and a half before someone came to help her. She was admitted into the hospital and her rhabdomyolysis has resolved. She does not report any pain in her lower extremity but had called in to her doctor and casually mentioned that she noted some swelling. Her doctor and subsequently 3 different nurses stated that she had to come into the emergency department to get an ultrasound to rule out a blood clot. The patient does take a diuretic but does not have edema in her right lower extremity except she does have some upwards toward her knee. Related Data Home Medications ?Medication ?Instructions ?Recorded ?Confirmed atenolol 100 mg tablet 100 mg PO Q24H 06/23/22 09/24/24 furosemide 40 mg tablet 40 mg PO BID@,14 06/23/22 09/24/24 halobetasol propionate 0.05 % 1 applic topical .2-3X/WEEK 06/23/22 09/24/24 topical cream omeprazole 20 mg capsule,delayed 20 mg PO DAILY 06/23/22 09/24/24 release potassium chloride 20 mEq 20 meq PO DAILY 06/23/22 09/24/24 tablet,extended release(part/cryst) (Klor-Con M) apixaban 5 mg tablet (Eliquis) 5 mg PO BID 07/20/23 09/24/24 cholecalciferol (vitamin D3) 50 50 mcg PO DAILY 07/20/23 09/24/24 mcg (2,000 unit) capsule (Vitamin D3) rosuvastatin 20 mg tablet 20 mg PO QPM 07/20/23 09/24/24 acetylcysteine (bulk) ea miscellaneous 09/24/24 09/24/24 doxycycline hyclate 100 mg tablet 100 mg PO BID 09/24/24 09/24/24 nystatin 100,000 unit/gram topical topical BID 09/24/24 09/24/24 cream Previous Rx's ?Medication ?Instructions ?Recorded famotidine 20 mg tablet (Pepcid) 20 mg PO .evening meal #90 tabs 06/23/22 gabapentin 100 mg capsule 100 mg PO TID #60 caps 09/08/24 Allergies Allergy/AdvReac Type Severity Reaction Status Date / Time No Known Drug Allergies Allergy Unverified 09/24/24 16:33 Review of Systems Status of ROS: Reports: 10 or more systems reviewed and unremarkable except as noted in History and below Narrative: Constitutional: No fevers, no weight gain or loss. Eyes: No discharge. No vision changes. HENT: No congestion, no sore throat, no ear pain. Cardiovascular: No chest pain, no palpitations. Respiratory: No shortness of breath, no wheezes, no cough. Gastrointestinal: No abdominal pain, no vomiting, no diarrhea. Genitourinary: No dysuria, no hematuria. Musculoskeletal: Normal range of motion. Skin: No rashes, no pruritis. Neurological: No dizziness, weakness, sensory change, speech change. Endo/Heme/Allergies: No bruising or bleeding. No polydipsia. Pysch: no suicidality, no anxiety, no insomnia. All other systems reviewed and are negative. [facility] Medical History (Updated 09/24/24 @ 19:58 by Den Shah MD) Fall ?W19.XXXA - Unspecified fall, initial encounter (ICD-10) Non-insulin dependent diabetes mellitus Left lumbar pain ?M54.50 - Low back pain, unspecified (ICD-10) Vitamin D deficiency ?E55.9 - Vitamin D deficiency, unspecified (ICD-10) HTN (hypertension) ?I10 - Essential (primary) hypertension (ICD-10) Morbid obesity ?E66.01 - Morbid (severe) obesity due to excess calories (ICD-10) Hyperlipidemia ?E78.5 - Hyperlipidemia, unspecified (ICD-10) Hyperparathyroidism ?E21.3 - Hyperparathyroidism, unspecified (ICD-10) GERD (gastroesophageal reflux disease) ?K21.9 - Gastro-esophageal reflux disease without esophagitis (ICD-10) Atrial fibrillation ?I48.91 - Unspecified atrial fibrillation (ICD-10) Polio ?A80.9 - Acute poliomyelitis, unspecified (ICD-10) Surgical History History of carpal tunnel surgery of right wrist ?Z98.890 - Other specified postprocedural states (ICD-10) Hx of LASIK ?Z98.890 - Other specified postprocedural states (ICD-10) History of cataract surgery ?Z98.49 - Cataract extraction status, unspecified eye (ICD-10) H/O: hysterectomy ?Z90.710 - Acquired absence of both cervix and uterus (ICD-10) Social History (Updated 09/06/24 @ 23:43 by Matilda Astudillo MD) Narrative: Lives independently, daughter Kimberly would be MDM if needed. Only resuscitate with a witnessed arrest, no desire to be on a machine for any period of time. Nonsmoker, no ETOH. What is your current living situation?: I presently have a place to live Problems where you live: no known problems Problems where you live details: NA In the past 12 months, utilities in danger of being shut off: declined to answer In past 12 months, lack of transportation kept you from medical appts, meetings, work, or getting things needed for daily living: no In the past 12 mos, have been you worried that your food would run out before you had money to buy more?: never true In the past 12 mos, the food you bought just didn't last and you didn't have money to buy more?: never true Highest level of school completed/degree received: high school graduate Smoking Status: Never smoker Do you use any of these nicotine containing products: None Second hand tobacco smoke exposure: No How often do you have a drink containing alcohol: monthly or less Alcohol type: wine How often do you have six or more drinks on one occasion: Never AUDIT-C Alcohol total score: 1 Non-prescribed substance use: denies use How often does anyone, including family, friends and others, physically hurt you: never How often does anyone, including family, friends and others, insult or talk down to you: never How often does anyone, including family, friends and others, threaten you with harm: never How often does anyone, including family, friends and others, scream or curse at you: never service: No Exam Narrative: Exam Narrative: Constitutional: Well-developed, well-nourished, no acute distress. HEENT: Normocephalic, atraumatic. Neck: Normal range of motion. Nontender. Supple. Heart: Regular. No murmurs. Normal rate. Intact distal pulses. Lungs: Clear to auscultation. No chest discomfort. No wheezes, rhonchi, or rales. Abdomen: Normal bowel sounds. Nontender. No rebound tenderness. Genitalia: Deferred. Back: No midline tenderness. Normal range of motion. Extremities: Normal range of motion. No injury. Left lower extremity does have some small amount of pitting edema near the ankle. The right lower extremity does not but there is appearance of more restrictive skin in this area. [place] up her calf on the right lower extremity she has similar contour to her left leg. Skin: Intact. No rash. Warm. No erythema or pallor. Neurologic: No altered sensation. No weakness. Alert and oriented. Psychiatric: No suicidality. No anxiety or depression. No insomnia. Nursing notes and vitals signs are reviewed. Const: Vital Signs, click to edit/add: Vital Signs - 24 hr 09/24/24 17:14 Temperature 97.5 F L Pulse Rate [Pulse Oximeter] 110 H Respiratory Rate 20 Blood Pressure [Ri t Upper Arm] 133/64 Pulse Oximetry 99 Oxygen Delivery Me thod Room Air Course Vital Signs Vital signs: Initial Vital Signs Temperature 97.5 F L 09/24/24 17:14 Temperature Source Temporal Artery Scan 09/24/24 17:14 Pulse Rate 110 H 09/24/24 17:14 Respiratory Rate 20 09/24/24 17:14 Blood Pressure 133/64 09/24/24 17:14 Blood Pressure Mean 87 09/24/24 17:14 Pulse Oximetry 99 09/24/24 17:14 Oxygen Delivery Method Room Air 09/24/24 17:14 Vital Signs Temperature 97.5 F L 09/24/24 17:14 Pulse Rate 110 H 09/24/24 17:14 Respiratory Rate 20 09/24/24 17:14 Blood Pressure 133/64 09/24/24 17:14 Pulse Oximetry 99 09/24/24 17:14 Oxygen Delivery Method Room Air 09/24/24 17:14 Temperature 97.5 F L 09/24/24 17:14 Pulse Rate 110 H 09/24/24 17:14 Respiratory Rate 20 09/24/24 17:14 Blood Pressure 133/64 09/24/24 17:14 Pulse Oximetry 99 09/24/24 17:14 Oxygen Delivery Method Room Air 09/24/24 17:14 Medical Decision Making MDM Narrative Medical decision making narrative: This patient comes in with others telling her that she should be here because of concern of some swelling in her left leg. She herself did not feel she should come but does so at others advice. She is taking Eliquis. Others were telling her that she might have a blood clot. An ultrasound the left lower extremity is obtained and there is no evidence of blood clot. The patient does not have much pitting edema in her extremities but her left leg is a bit more swollen than the right especially down toward the ankle. She had fallen a couple weeks ago and was down for a day and a half before she could get up. She did have rhabdomyolysis and was admitted to the hospital. Her kidney function has improved almost back to normal at the last checkup. She was instructed to drink 100 oz of water daily to attend to her kidney function. She is currently taking Lasix 40 mg twice daily. I advised her to back off on that amount of water because that is likely why she is retaining fluid and her kidneys have resumed normal function. She is okay to be discharged home. Discharge Plan Discharge Clinical Impression: Pedal edema Patient Disposition: Home w/ Parent or Adult Condition: Stable Additional Instructions: Decrease water intake. Continue other medications as prescribed. Return if worsening. Prescriptions: No Action atenolol 100 mg tablet 100 mg PO Q24H omeprazole 20 mg capsule,delayed release(DR/EC) 20 mg PO DAILY furosemide 40 mg tablet 40 mg PO BID@09,14 halobetasol propionate 0.05 % cream 1 applic topical .2-3X/WEEK Rx Instructions: uses 2-3 times/week potassium chloride [Klor-Con M20] 20 mEq tablet,ER particles/crystals 20 meq PO DAILY famotidine [Pepcid] 20 mg tablet 20 mg PO .evening meal Qty: 90 4RF rosuvastatin 20 mg tablet 20 mg PO QPM Eliquis 5 mg tablet 5 mg PO BID cholecalciferol (vitamin D3) [Vitamin D3] 50 mcg (2,000 unit) capsule 50 mcg PO DAILY acetylcysteine (bulk) Powder miscellaneous doxycycline hyclate 100 mg tablet 100 mg PO BID nystatin 100,000 unit/gram cream topical BID gabapentin 100 mg capsule 100 mg PO TID Qty: 60 0RF Follow Up/Referrals: Kely Salas MD [Primary Care Provider] - Stand Alone Forms: [employer] Info Instructions
--- OUTSIDE RECORDS SUMMARY | 2024-09-24 18:49 | XMS_ITS | Clinical Summary ---
Author Organization [facility] Address [address] [place] [id number] Care Team Providers Care Boom Stick Man Name Role Phone Kely Salas MD Primary Care Provider [phone] Allergies No known active allergies Medications Cholecalciferol, Vitamin D3, (VITAMIN D-3) 2,000 unit tabletIndications: Vitamin D deficiency Take 1 tablet by mouth once daily. 0 03/20/20 14 Active apixaban (Eliquis) 5 mg tabletIndications: Atrial fibrillation, unspecified type (HC) Take 1 Tablet (5 mg) by mouth two times daily. 180 Tablet 3 06/08/20 24 Active atenoloL (TENORMIN) 100 mg tabletIndications: Chronic a-fib (HC) Take 1 Tablet (100 mg) by mouth once daily. 90 Tablet 3 06/08/20 24 Active furosemide (LASIX) 40 mg tabletIndications: Atrial fibrillation, unspecified type (HC) Take 1 Tablet (40 mg) by mouth two times daily. 180 Tablet 3 06/08/20 24 Active potassium chloride (Klor-Con M20) 20 mEq extended-release tablet (part/cryst)Indica tions:Hypokalemia Take 1 Tablet (20 mEq) by mouth once daily with a meal. 90 Tablet 3 06/08/20 24 Active rosuvastatin (CRESTOR) 20 mg tabletIndications: Hyperlipidemia, unspecified hyperlipidemia type Take 1 Tablet (20 mg) by mouth at bedtime. 90 Tablet 3 06/08/20 24 Active omeprazole (PRILOSEC) 20 mg Delayed-Release capsuleIndications :Gastric reflux Take 1 Capsule (20 mg) by mouth once daily before a meal. 90 Capsule 3 06/08/20 24 Active halobetasol 0.05 % creamIndications:L ichen sclerosus Apply thin layer 2-3 times per week. 50 g 06/08/20 24 Active nystatin 100,000 unit/gram creamIndications:C andidal intertrigo Apply topically to affected area(s) two times daily. 90 g 1 09/10/19 25 Active gabapentin (NEURONTIN) 100 mg capsule Take 1 Capsule (100 mg) by mouth three times daily. 09/19/19 25 Active Foam Bandage (Tendra Mepilex Border) 4 X 4 bndgIndications:El bow wound, left, subsequent encounter Apply topically to affected area(s). 30 Each 2 09/19/19 25 Active doxycycline 100 mg tabletIndications: Elbow wound, left, subsequent encounter Take 1 Tablet (100 mg) by mouth two times daily for 10 days. 20 Tablet 09/19/19 25 025 Active acetylcysteine 600 mg cap capsule Take 600 mg by mouth once daily. 07/20/19 24 Active nystatin 100,000 unit/gram creamIndications:C andidal intertrigo Apply topically to affected area(s) two times daily. 90 g 1 09/10/19 25 025 Discontin ued(*Erro r/entry level manager error) Active Problems Problem Noted Date Diagnosed Date Type 2 diabetes mellitus wit hout complication, without long-term current use of insulin 09/18/2024 Hyperlipidemia 09/24/2022 Positive cardiac stress test 09/24/2022 [...] Encounters Date Type Department Care Team Description 09/24/[address] [address] Kely Salas MD Message (Message) 09/24/2024 Nurse Triage [address] [address] Kely Salas MD Leg Swelling (Left leg worse on weekend. Getting better with elevation) 09/20/[address] [address] Kely Salas MD Form; Medication List Update 09/20/2024 Orders Only [address] [address] Kelly Ragsdale LPN <No scans attached> 09/18/2024 1:45 PM SCREENING TECH Ancillary Procedure [address] [address] 09/18/2024 12:45 PM SCREENING TECH Office Visit [address] [address] Kely Salas MD Hospital F/U; Elbow Injury (left) 09/18/2024 Travel 09/10/2024 Nurse Triage [address] [address] Kely Salas MD Questions (Nystatin 100,000) 09/07/2024 11:00 AM SCREENING TECH Ancillary Procedure [facility] [address] [place] [address] 07/05/2024 10:15 AM SCREENING TECH Ancillary Procedure [facility] [address] [place] [address] 07/05/2024 Travel from Last 3 Months Immunizations Immunization Administration Dates Next Due COVID-19 VACCINE SPIKEVAX [...] on file Legal Sex Female 5:23 AM SCREENING TECH Gender Identity Not on file Sexual Orientation [...] Sign Reading Time Taken Comments Blood Pressure 135/79 09/18/2024 1:00 PM SCREENING TECH Pulse 87 09/18/2024 1:00 PM SCREENING TECH Temperature 36.6 C (97.9 F) 08/11/2023 11:34 AM SCREENING TECH Respiratory Rate 16 12/16/2021 3:58 PM CDT Oxygen Saturation 98% 09/18/2024 1:00 PM SCREENING TECH Inhaled Oxygen Concentration - - Weight 109.2 kg (240 lb 12.8 oz) 09/18/2024 1:00 PM SCREENING TECH Height 151.6 cm (4' 11.69) 06/08/2024 8:[address] Body Mass Index 47.53 06/08/2024 8:34 AM SCREENING TECH Plan of Treatment Health Maintenance Due Date Last Done Comments Tdap 10[birth year]13/1956 Hepatitis C screening for ag e 18-79 1963 Zoster (shingles) series for age 50+ (2 of 3) 03/04/2015 01/07/2015 Tetanus booster 09/02/2015 09/02/2005, 09/01/2005 RSV vaccine for adults or (1 - 1-dose 75+ series) 10/13/2019 COVID-19 vaccine series ( season) 2024 06/07/2023, 09/11/2021, 11/06/2020, Additional history exists Influenza Vaccine (#1) 2024 3, 06/14/2017, 03/26/2015 BMI (ht and wt on same day) for age 18+ 06/08/2025 06/08/2024, 06/07/2023, 05/13/2022, Additional history exists Depression screening for age 12+ 06/08/2025 06/08/2024, 06/07/2023, 06/07/2023, Additional history exists Medicare Wellness for age 65+ 06/09/2025, 06/07/2023, 05/13/2022, Additional history exists Pneumococcal series for age 50+ Completed 7, 03/26/2015 DEXA/DXA scan for age 65+ Completed 12/21/2021, Procedures Procedure Name Priority Date/Time Associated Diagnosis Comments AEROBIC BACTERIAL CULTURE, STAIN Routine 09/18/2024 3:15 PM SCREENING TECH Elbow wound, left, subsequent encounter XR ELBOW 3 VIEWS LEFT Routine 09/18/2024 2:18 PM SCREENING TECH Elbow wound, left, subsequent encounter COMP METABOLIC PANEL Routine 09/18/2024 1:47 PM SCREENING TECH Traumatic rhabdomyolysis, subsequent encounter CBC WITH AUTO DIFFERENTIAL Routine 09/18/2024 1:47 PM SCREENING TECH Traumatic rhabdomyolysis, subsequent encounter CK TOTAL Routine 09/18/2024 1:47 PM SCREENING TECH Traumatic rhabdomyolysis, subsequent encounter HEMOGLOBIN A1C Routine 09/18/2024 1:47 PM SCREENING TECH Type 2 diabetes mellitus without complication, without long-term current use of insulin (HC) ECHO TTE COMPLETE WO CONTRAST Routine 09/07/2024 11:40 AM SCREENING TECH Elevated troponin MR SPINE LUMBAR WO Routine 07/05/2024 10 :15 AM SCREENING TECH Chronic left-sided low back pain without sciatica XR DXA BONE DENSITY 2 SITES AXIAL AND 1 SITE PERIPHERAL Routine 12/21/2021 8:48 AM CDT Hyperparathyroidism (HC) from Last 3 Months or Most Recently Relevant to Health Maintenance Results * (ABNORMAL) AEROBIC BACTERIAL CULTURE, STAIN (09/18/2024 3:15 PM SCREENING TECH) CULTURE RESULT(A) 09/22/2024 11:21 AM SCREENING TECH [facility] CULTURE 1+ Staphylococcus aureus 09/22/2024 11:21 AM SCREENING TECH [facility] GRAM STAIN No PMNs 09/22/2024 11:21 AM SCREENING TECH [facility] GRAM STAIN No RBCs 09/22/2024 11:21 AM SCREENING TECH [facility] GRAM STAIN No Epithelial cells 09/22/2024 11:21 AM SCREENING TECH [facility] GRAM STAIN No organisms seen 025 11:21 AM SCREENING TECH [facility] Other (Other) Non-Blood / Unknown 09/18/2024 3:15 PM SCREENING TECH 09/18/2024 3:15 PM SCREENING TECH Narrative Organism Antibiotic Method Susceptibility Staphylococcus aureus OXACILLIN <=0.25: S Comment:Oxacillin singh sceptible should not be interpreted as penicillin or amoxicillin susceptible. Staphylococcus aureus CLINDAMYCIN 0.25: S Staphylococcus aureus DOXYCYCLINE <=0.5: S Staphylococcus aureus CEFAZOLIN S Staphylococcus aureus TRIMETHOPRIM/SULF <=0.5/9.5: S us Kely Salas MD MICROBIOLOGY Final Resul t [facility] [address] [place] [address], * XR ELBOW 3 VIEWS LEFT (09/18/2024 2:18 PM SCREENING TECH) Anatomical Region Laterality Modality ELBOW L Computed Radiogr aphy 09/19/2024 11:3 9 AM SCREENING TECH Narrative 09/19/2024 11:39 AM SCREENING TECH For Patients: As a result of the Cures Act, medical imaging exams and procedure reports are released immediately into your electronic medical record. You may view this report before your referring provider. If you have questions, please contact your health care provider. INDICATION: Elbow wound TECHNIQUE: Three views left elbow FINDINGS/IMPRESSION: Normal alignment. No acute fracture or acute osseous abnormalities are visualized. Bandage over the left elbow soft tissues. There is no effusion seen. No localized soft tissue gas visualized. No erosive change visualized Dictated by Judith Hughes MD @ 09/19/2024 11:39:33 AM (Electronically Signed) Procedure Note Judith Hughes MD - 09/19/2024 For Patients: As a result of the Cures Act, medical imagingexams and procedure reports are released immediately into your electronicmedical record. You may view this report before your referring provider.If you have questions, please contact your health care provider. INDICATION: Elbow wound TECHNIQUE: Three views left elbow FINDINGS/IMPRESSION: Normal alignment. No acute fracture or acute osseous abnormalities arevisualized. Bandage over the left elbow soft tissues. There is no effusionseen. No localized soft tissue gas visualized. No erosive changevisualized Dictated by Judith Hughes MD @ 09/19/2024 11:39:33 AM (Electronically Signed) Kely Salas MD GENERAL IMAGING Final Resul t * (ABNORMAL) HEMOGLOBIN A1C (09/18/2024 1:47 PM SCREENING TECH) HEMOGLOBIN A1C 6.7(H) <5.7 % of total Hgb [facility] Comment: For someone without known diabetes, a [...] for children. Blood BLOOD SPECIMEN / Unknown 09/18/2024 1:47 PM SCREENING TECH 09/18/2024 1:49 PM SCREENING TECH Narrative [facility] - 09/19/2024 5:44 AM SCREENING TECH FASTING:YES FASTING: YES Kely Salas MD CHEMISTRY Final Resul t [facility] [address] [place] [address], [facility] [address] [place] [address] * CBC AND DIFFERENTIAL (09/18/2024 1:47 PM SCREENING TECH) Pathologist [facility] WHITE BLOOD CELL COUNT 9.8 3.8 - 10.8 Thousand/u L [facility] RED BLOOD CELL COUNT 4.32 3.80 - 5.10 Million/uL [facility] HEMOGLOBIN 13.2 11.7 - 15.5 g/dL [facility] HEMATOCRIT 40.4 35.0 - 45.0 % [facility] MCV 93.5 80.0 - 100.0 fL [facility] MCH 30.6 27.0 - 33.0 pg [facility] MCHC 32.7 32.0 - 36.0 g/dL [facility] Comment: For adults, a slight decrease in the calculated MCHC value (in the range of 30 to 32 g/dL) is most likely not clinically significant; however, it should be interpreted with caution in correlation with other red cell parameters and the patient's clinical condition. RDW 13.6 11.0 - 15.0 % [facility] PLATELET COUNT 266 140 - 400 Thousand/u L [facility] MPV 10.4 7.5 - 12.5 fL [facility] ABSOLUTE NEUTROPHILS 6,595 1,500 - 7,800 cells/uL [facility] ABSOLUTE LYMPHOCYTES 2,107 850 - 3,900 cells/uL [facility] ABSOLUTE MONOCYTES 892 200 - 950 cells/uL [facility] ABSOLUTE EOSINOPHILS 167 15 - 500 cells/uL [facility] ABSOLUTE BASOPHILS 39 0 - 200 cells/uL [facility] NEUTROPHILS 67.3 % [facility] LYMPHOCYTES 21.5 % [facility] MONOCYTES 9.1 % [facility] EOSINOPHILS 1.7 % [facility] BASOPHILS 0.4 % [facility] Blood BLOOD SPECIMEN / Unknown 09/18/2024 1:47 PM SCREENING TECH 09/18/2024 1:49 PM SCREENING TECH Narrative [facility] - 09/19/2024 3:44 AM SCREENING TECH FASTING:YES FASTING: YES Kely Salas MD HEMATOLOGY Final Resul t Performing Organization Address City[facility]/ZIP Co de Phone Number [facility] [address] [address], [place] [phone] [facility] [address] [place] [address] * CK TOTAL (09/18/2024 1:47 PM SCREENING TECH) Pathologist [facility] CREATINE KINASE, TOTAL 94 18 - 225 U/L [facility] Blood BLOOD SPECIMEN / Unknown 09/18/2024 1:47 PM SCREENING TECH 09/18/2024 1:49 PM SCREENING TECH Narrative [facility] - 09/19/2024 5:19 AM SCREENING TECH FASTING:YES FASTING: YES Kely Salas MD CHEMISTRY Final Resul t [facility] [address] [place] [address], [place] [phone] [facility] [address] [place] [address] * (ABNORMAL) COMP METABOLIC PANEL (09/18/2024 1:47 PM SCREENING TECH) Pathologist [facility] GLUCOSE 92 65 - 99 mg/dL [facility] Comment: Fasting reference interval UREA NITROGEN (BUN) 9 7 - 25 mg/dL [facility] CREATININE 0.75 0.60 - 1.00 mg/dL [facility] EGFR 81 > OR = 60 mL/min/1. 73m2 [facility] BUN/CREATININE RATIO SEE NOTE: 6 - 22 (calc) [facility] Comment: Not Reported: BUN and Creatinine are within reference range. SODIUM 144 135 - 146 mmol/L [facility] POTASSIUM 3.6 3.5 - 5.3 mmol/L [facility] CHLORIDE 100 98 - 110 mmol/L [facility] CARBON DIOXIDE 30 20 - 32 mmol/L [facility] CALCIUM 9.6 8.6 - 10.4 mg/dL [facility] PROTEIN, TOTAL 6.7 6.1 - 8.1 g/dL [facility] ALBUMIN 3.8 3.6 - 5.1 g/dL [facility] GLOBULIN 2.9 1.9 - 3.7 g/dL (calc) [facility] ALBUMIN/GLOBULIN RATIO 1.3 1.0 - 2.5 (calc) [facility] BILIRUBIN, TOTAL 1.1 0.2 - 1.2 mg/dL [facility] ALKALINE PHOSPHATASE 115 37 - 153 U/L [facility] AST 30 10 - 35 U/L [facility] ALT 30(H) 6 - 29 U/L [facility] Blood BLOOD SPECIMEN / Unknown 09/18/2024 1:47 PM SCREENING TECH 09/18/2024 1:49 PM SCREENING TECH Narrative [facility] - 09/19/2024 5:19 AM SCREENING TECH FASTING:YES FASTING: YES us Kely Salas MD CHEMISTRY Final Resul t [facility] [address] [place] [address], [place] [phone] [facility] [address] [place] [address] * ECHO TTE COMPLETE WO CONTRAST (09/07/2024 11:40 AM SCREENING TECH) AORTIC VALVE MEAN PG 3 mmHg PEAK TR VELOCITY 3.0 m/s LVEDD 3.6 cm EJECTION FRACTION 70 - 75% Anatomical Region Laterality Modality Ultrasound 09/07/2024 10:5 3 AM SCREENING TECH Narrative 09/07/2024 11:59 AM SCREENING TECH ECHOCARDIOGRAM NADIA HOWARD : 1945 78 years Study Date: 09/07/2024 10:53:48 AM Gender: F BP: 103/51 mmHg Height: 163.00 cm BSA: 2.18 m Weight: 116.00 kg Tech: EVA Referring MD: MATILDA MERZA Site: [facility] Reading Location: Mobile- Patient Location: Inpatient. Procedure: 2D, Color Doppler and Spectral Doppler. Indication for study: Elevated troponin Cardiac Rhythm: Irregular.Study quality: Technically limited. Imaging limitations: This study was subject to imaging limitations due to body habitus, a prominent lung artifact and lying in a supine position. Final Impressions: 1. Technically limited exam. 2. Normal LV size, mildly increased wall thickness, hyperdynamic global systolic function with an estimated EF of 70 - 75%. 3. Right ventricular cavity size is moderately enlarged, global systolic RV function is moderately reduced. 4. Moderately enlarged left atrium. 5. The aortic valve is sclerotic, no stenosis and trivial regurgitation. 6. The mitral valve is sclerotic, trace mitral regurgitation. 7. Tricuspid valve is tethered. 8. Moderate tricuspid regurgitation. 9. No pericardial effusion. Chamber Sizes and Function Normal left ventricular size, mildly increased wall thickness, hyperdynamic global systolic function with an estimated EF of 70 - 75%. No resting regional wall motion abnormality visualized. Left atrial size is moderately enlarged. Right ventricular cavity size is moderately enlarged, global systolic RV function is moderately reduced. The right atrium is moderately enlarged. The pulmonary artery is not well visualized. The sinus of Valsalva is normal sized. The ascending aorta is normal sized. Valves, RV Pressures and Diastolic Function The aortic valve is sclerotic, no stenosis and trivial regurgitation. The mitral valve is sclerotic, trace mitral regurgitation. Diastolic function assessment not performed. The tricuspid valve is tethered. Tricuspid regurgitation is moderate. The tricuspid regurgitant velocity is 3.0 m/s, the estimated right ventricular systolic pressure is 35 mmHg plus right atrial pressure. The pulmonic valve is not well visualized. Trace pulmonary regurgitation. Masses, Effusion, Shunts There is no pericardial effusion. , respiratory size variation greater than 50%. No left to right shunting was detected by limited color flow Doppler interrogation of the interatrial septum. MEASUREMENTS AND CALCULATIONS 2-D Measurements and LV Function: LVID (d) 3.6 cm LV FS% (2D) 44 % LVID (s) 2.0 cm LVOT diameter 2.0 cm IVS (d) 1.2 cm HR 98 bpm LVPW (d) 1.4 cm RV Max 4C (d) 4.4 cm Ao Sinus 3.0 cm Asc Ao 3.4 cm LA 4.7 cm Aortic Valve: Vmax 1.2 m/s ALEX (V) 2.76 cm VTI 0.24 m ALEX (I) 2.98 cm LVOT V max 1.1 m/s Max PG 6 mmHg LVOT VTI 0.22 m Mean PG 3 mmHg SV 71 ml Dim Index 0.95 SV index 32 ml/m CO 6.9 l/min CI 3.2 l/min/m Tricuspid Valve and estimated PA pressures: TR Vmax 3.0 m/s TAPSE 1.4 cm TR maxG 35 mmHg . This study was interpreted by an [facility] accredited facility. CC: [facility] (med records) [facility], Med/Surg - IP [facility]. Final Procedure Note Hollie Peacock, [facility] - 09/07/2024 ECHOCARDIOGRAM NADIA HOWARD : 1945 78 years Study Date: 09/07/2024 10:53:48 AM Gender: F BP: 103/51 mmHg Height: 163.00 cm BSA: 2.18 m Weight: 116.00 kg Tech: [facility] Referring MD: MATILDA MERAZ Site: [facility] Reading Location: Mobile- Patient Location: Inpatient. Procedure: 2D, Color Doppler and Spectral Doppler. Indication for study: Elevated troponin Cardiac Rhythm: Irregular.Study quality: Technically limited. Imaging limitations: This study was subject to imaging limitations due tobody habitus, a prominent lung artifact and lying in a supine position. Final Impressions: 1. Technically limited exam. 2. Normal LV size, mildly increased wall thickness, hyperdynamic globalsystolic function with an estimated EF of 70 - 75%. 3. Right ventricular cavity size is moderately enlarged, global systolicRV function is moderately reduced. 4. Moderately enlarged left atrium. 5. The aortic valve is sclerotic, no stenosis and trivialregurgitation. 6. The mitral valve is sclerotic, trace mitral regurgitation. 7. Tricuspid valve is tethered. 8. Moderate tricuspid regurgitation. 9. No pericardial effusion. Chamber Sizes and Function Normal left ventricular size, mildly increased wall thickness,hyperdynamic global systolic function with an estimated EF of 70 - 75%. Noresting regional wall motion abnormality visualized. Left atrial size ismoderately enlarged. Right ventricular cavity size is moderately enlarged,global systolic RV function is moderately reduced. The right atrium ismoderately enlarged. The pulmonary artery is not well visualized. Thesinus of Valsalva is normal sized. The ascending aorta is normal sized. Valves, RV Pressures and Diastolic Function The aortic valve is sclerotic, no stenosis and trivial regurgitation. Themitral valve is sclerotic, trace mitral regurgitation. Diastolic functionassessment not performed. The tricuspid valve is tethered. Tricuspidregurgitation is moderate. The tricuspid regurgitant velocity is 3.0 m/s,the estimated right ventricular systolic pressure is 35 mmHg plus rightatrial pressure. The pulmonic valve is not well visualized. Tracepulmonary regurgitation. Masses, Effusion, Shunts There is no pericardial effusion. , respiratory size variation greaterthan 50%. No left to right shunting was detected by limited color flowDoppler interrogation of the interatrial septum. MEASUREMENTS AND CALCULATIONS 2-D Measurements and LV Function: LVID (d) 3.6 cm LV FS% (2D) 44 % LVID (s) 2.0 cm LVOT diameter 2.0 cm IVS (d) 1.2 cm HR 98 bpm LVPW (d) 1.4 cm RV Max 4C (d) 4.4 cm Ao Sinus 3.0 cm Asc Ao 3.4 cm LA 4.7 cm Aortic Valve: Vmax 1.2 m/s ALEX (V) 2.76 cm VTI 0.24 m ALEX (I) 2.98 cm LVOT V max 1.1 m/s Max PG 6 mmHg LVOT VTI 0.22 m Mean PG 3 mmHg SV 71 ml Dim Index 0.95 SV index 32 ml/m CO 6.9 l/min CI 3.2 l/min/m Tricuspid Valve and estimated PA pressures: TR Vmax 3.0 m/s TAPSE 1.4 cm TR maxG 35 mmHg . This study was interpreted by an [facility] accredited facility. CC: [facility] (med records) [facility], Med/Surg - IP [facility]. Final us Matilda Meraz MD ECHO ORD Final Resu lt * MR SPINE LUMBAR WO (07/05/2024 10:15 AM SCREENING TECH) Anatomical Region Laterality Modality Spine, LUMBAR SPINE Magnetic Res onance 07/05/2024 2:47 PM SCREENING TECH Impressions 07/05/2024 2:47 PM SCREENING TECH 1. Multilevel disc height loss with associated [...] PM (Electronically Signed) Narrative 07/05/2024 2:47 PM SCREENING TECH For Patients: As a result of the Century Cures Act, medical imaging exams and [...] For Patients: As a result of the Century Cures Act, medical imagingexams and procedure reports [...] L1-L3. Vertebral body heights are maintained. No [id number] infiltrative lesion is identified. There is advancedmultilevel [...] MD @ 07/05/2024 2:47:00 PM (Electronically Signed) Kely Salas MD MR Final Resul t * XR DXA BONE DENSITY 2 SITES [...] recommended in 3-5 years. Akila Buitrago PA-C [facility] 12/23/2021 Narrative 12/23/2021 7:46 AM CDT For Patients: Results are automatically released to your [employer] ([employer]) account once available, in compliance with federal regulations. This means that you may see your results before your provider has had a chance to review them. Please allow 2-3 business days for your provider to comment on the results. XR DXA Bone Mineral Density (BMD) EXAM LOCATION: [facility] [address] [facility] [address] PATIENT NAME: Nadia Howard DATE OF : 1945 EXAM DATE: 12/21/2021 REQUESTING PROVIDER: Sami Winchester MD GENDER AT : female HEIGHT: 5' 1.34 (07/31/2020) WEIGHT: 238 lb (12/16/2021) MENOPAUSAL STATUS: Postmenopausal RACE/ETHNICITY: White RISK FACTORS: Hyperparathyroidism and White Race CURRENT MEDICATION FOR BONE LOSS: NONE INDICATION: Follow-up of normal DXA COMPARISON DATE(S): 2015 DXA scans are compared to prior studies for a patient only when the two (or more) studies were performed on the same scanner. It is not possible to compare data generated on one scanner to data from another because there are not standards in DXA equipment. This applies even if the two scanners are made by the same nuisance wildlife trapper. PROCEDURE: Dual-energy x-ray absorptiometry performed with routine [...] Osteoporosis: T-score at or below -2.5 SD Sami Winchester MD DEXA Final Resu lt from Last 3 Months or Most Recently Relevant to Health Maintenance Insurance MEDICARE PART B HB ONLY MEDICARE PART A HB ONLY BLUE CROSS UMKUMI[employer] BLUE MR PB ONLY Care Teams Boom Stick Man Relationship Specialty Start Date End Date Kely Salas MD [address] [place] [address] PCP - General Family Practice 12/14/19
== END 2024-09-24 20:10 | disposition home or self-care (01) ==
PROVIDERS: Emergency Provider Emergency Medicine Emergency Medical Services; PCP Family Medicine
DX: R60.0 Localized edema (principal)
CPT/HCPCS: 93971; 99283; 99284